=== PATIENT | male | born 1960 | race Caucasian/White ===

== ENCOUNTER 2017-02-28 12:08 | Inpatient (IN) | payer MEDICAID, OTHER ==
[~2017-02-28] VITALS: Ht 162.6 cm; Wt 55.6 kg
[~2017-02-28 12:08] MED LIST: ALBU8HFA IH; AMIO200T44 PO; CARV6 PO; DSS100 PO; FURO20 PO; HYDR-3965 PO; KDUR10 PO; LISI-660 PO; MORP15 PO; PANT40TA25 PO; PRED20 PO; RANI150T7 PO
[2017-02-28] MEDS ORDERED: IPRATROPIUM BROMIDE 0.5 MG/2.5 ML NEB SOLUTION NEB ONE (12:30)
[2017-02-28] MEDS ORDERED: ALBUTEROL SULFATE 2.5 MG/0.5 ML NEB SOLUTION NEB ONE (12:30)
[2017-02-28] MEDS ORDERED: MAGNESIUM SULFATE 2 GM, MVI, ADULT NO.1 WITH VIT K 10 ML, THIAMINE HCL 100 MG, FOLIC AC... IV ONE ×5 (12:30)
[2017-02-28 13:21] LABS: HEMOGLOBIN 11.6 g/dL (13.5-17.5); MEAN CORPUSCULAR HEMOGLOBIN 34.2 pg (26.0-34.0); MEAN CORPUSCULAR HGB CONC 32.3 G/dL (31.0-37.0); MEAN CORPUSCULAR VOLUME 106 fL (80-100); PLATELET COUNT (AUTO) 264 K/uL (150-450); RED BLOOD CELL COUNT(AUTO) 3.39 MIL/uL (4.50-5.90); RED CELL DISTRIBUTION WIDTH 15.8 % (11.5-14.5); WHITE BLOOD COUNT (AUTO) 13.6 K/uL (4.5-11.0)
[2017-02-28 13:35] LABS: ANION GAP 27 mmol/L (8-16); CALCIUM, TOTAL 8.1 mg/dL (8.8-10.5); CARBON DIOXIDE 14 mmol/L (22-29); CHLORIDE 97 mmol/L (98-107); GLOMERULAR FILTR. RATE CALC > 60 mL/min (>60); POTASSIUM 4.6 mmol/L (3.5-5.1); SODIUM SERUM 138 mmol/L (136-145); UREA NITROGEN, BLOOD 12 mg/dL (7-18)
[2017-02-28 13:41] LABS: B-TYPE NATRIURETIC PEPTIDE 42 pg/mL (0-100)
[2017-02-28 13:48] LABS: BAND NEUTROPHILS % (MANUAL) 16 % (1-5); LYMPHOCYTES % (MANUAL) 1 % (22-44); RBC MORPHOLOGY COMMENT ABNORMAL R; TOTAL CELLS COUNTED 100
[2017-02-28 13:55] LABS: INR 0.9 (0.9-1.1)
[2017-02-28 13:59] LABS: ALANINE AMINOTRANSFERASE 66 U/L (12-78); ALBUMIN 3.1 g/dL (3.4-5.0); ASPARTATE AMINOTRANSFERASE 191 U/L (15-37); BILIRUBIN,TOTAL 1.5 mg/dL (0.1-1.0); CREATINE KINASE MB 4.5 ng/mL (0-5); CREATINE KINASE, TOTAL 570 U/L (39-308); TOTAL PROTEIN, SERUM 5.9 g/dL (6.4-8.2)
[2017-02-28 15:04] LABS: APPEARANCE,URINE CLOUDY (CLEAR); GLUCOSE, URINE (UA) NEGATIVE (NEGATIVE); KETONES,URINE 40 mg/dL (NEGATIVE); LEUKOCYTE ESTERASE ,URINE NEGATIVE (NEGATIVE); OCCULT BLOOD,URINE SMALL (NEGATIVE); PH,URINE 5.5 (5.0-8.0); PROTEIN,URINE POS 1+ (NEGATIVE)
[2017-02-28 15:32] LABS: ADD UA MICROSCOPIC YES
[2017-02-28 16:19] LABS: RBC,URINE 0-2 /HPF (0-2)
[2017-02-28 16:20] LABS: COARSE GRANULAR CASTS,URINE 0-2 /LPF (None Seen); FINE GRANULAR CASTS,URINE 0-2 /LPF (None Seen); SQUAMOUS EPITHELIAL CELL,UR Few /LPF (None Seen)
[2017-02-28 18:12] LABS: ANION GAP 27 mmol/L (8-16); CALCIUM, TOTAL 7.9 mg/dL (8.8-10.5); CARBON DIOXIDE 15 mmol/L (22-29); CHLORIDE 95 mmol/L (98-107); CREATININE 0.85 mg/dL (0.60-1.30); GLOMERULAR FILTR. RATE CALC > 60 mL/min (>60); POTASSIUM 4.5 mmol/L (3.5-5.1); SODIUM SERUM 137 mmol/L (136-145); UREA NITROGEN, BLOOD 12 mg/dL (7-18)
[2017-02-28 19:12] LABS: ABG A-A DIFF O2 4.6 mmHg (10-20.0); ABG BASE EXCESS -16.8 mmol/L (-2.0-3.0); ABG HCO3 13.5 mmol/L (22.0-26.0); ABG PH 7.352 (7.35-7.450); TEMPERATURE, FAHRENHEIT, BG 98.6 FAHREN (96.0-98.6)
[2017-02-28 19:13] LABS: ABG PCO2 16 mmHg (35-45); ALLEN TEST, BLOOD GAS POSITIVE
[2017-02-28] MEDS ORDERED: SODIUM BICARBONATE 100 MEQ in DEXTROSE 5%-WATER 1,000 ML IV ONE (19:30)
[2017-02-28] MEDS ORDERED: ChlordiazePOXIDE HCL 25 MG CAPSULE PO ONE (20:00)
[2017-02-28 21:53] LABS: ANION GAP 25 mmol/L (8-16); CALCIUM, TOTAL 7.3 mg/dL (8.8-10.5); CARBON DIOXIDE 15 mmol/L (22-29); CHLORIDE 92 mmol/L (98-107); GLOMERULAR FILTR. RATE CALC > 60 mL/min (>60); POTASSIUM 4.2 mmol/L (3.5-5.1); SODIUM SERUM 132 mmol/L (136-145); UREA NITROGEN, BLOOD 11 mg/dL (7-18)
[2017-02-28] MEDS ORDERED: ACETAMINOPHEN 325 MG TABLET PO PRN (22:45)
[2017-02-28] MEDS ORDERED: ONDANSETRON HCL 4 MG/2 ML VIAL IVP PRN ×2 (22:45→23:30)
[2017-02-28] MEDS ORDERED: 0.9% SODIUM CHLORIDE 10 ML SYRINGE IVP PRN (22:45)
[2017-02-28] MEDS ORDERED: BISACODYL 10 MG RECTAL RECTAL SUPPOSITORY PR PRN (23:30)
[2017-02-28] MEDS ORDERED: ZOLPIDEM TARTRATE 5 MG TABLET PO PRN (23:30)
[2017-02-28] MEDS ORDERED: MAGNESIUM SULFATE 4 GM/WATER 100 ML IV PRN (23:30)
[2017-02-28] MEDS ORDERED: POTASSIUM CHLORIDE 20 MEQ ER TABLET PO PRN (23:30)
[2017-02-28] MEDS: DEXTROSE 5%-0.45% SODIUM CHL 1,000 ML IV SCH (23:48)
[2017-02-28 23:52] VITALS: BP 136/75
[2017-03-01] VITALS (8 sets, daily range): BP systolic 119–146; BP diastolic 72–81
[2017-03-01] MEDS: ChlordiazePOXIDE HCL 25 MG CAPSULE PO PRN ×2 (00:04→03:06)
[2017-03-01] MEDS: OxyCODONE HCL/ACETAMINOPHEN 5-325 MG TABLET PO PRN ×2 (00:44→06:14)
[2017-03-01 05:53] LABS: BASOPHILS # (AUTO) 0.01 K/uL (0.00-0.20); BASOPHILS % (AUTO) 0.1 % (0.0-2.0); EOSINOPHILS # (AUTO) 0.01 K/uL (0.00-0.70); EOSINOPHILS % (AUTO) 0.04 % (1.0-6.0); HEMATOCRIT 32.6 % (41-53); LYMPHOCYTES # (AUTO) 0.4 K/uL (1.0-4.8); LYMPHOCYTES % (AUTO) 3.6 % (22.0-44.0); MEAN CORPUSCULAR HEMOGLOBIN 35.6 pg (26.0-34.0); MEAN CORPUSCULAR HGB CONC 33.7 G/dL (31.0-37.0); MEAN CORPUSCULAR VOLUME 106 fL (80-100); MONOCYTES # (AUTO) 0.7 K/uL (0.1-1.0); MONOCYTES % (AUTO) 5.7 % (2.0-9.0); NEUTROPHILS # (AUTO) 10.7 K/uL (1.8-7.7); PLATELET COUNT (AUTO) 184 K/uL (150-450); RED BLOOD CELL COUNT(AUTO) 3.08 MIL/uL (4.50-5.90); RED CELL DISTRIBUTION WIDTH 15.4 % (11.5-14.5); WHITE BLOOD COUNT (AUTO) 11.8 K/uL (4.5-11.0)
[2017-03-01 06:55] LABS: NEUTROPHILS % (AUTO) 90.5 % (40.0-70.0)
[2017-03-01 06:56] LABS: RBC MORPHOLOGY COMMENT ABNORMAL RBC MORPH
[2017-03-01] MEDS ORDERED: ChlordiazePOXIDE HCL 25 MG CAPSULE PO PRN (07:00)
[2017-03-01 07:02] LABS: ALANINE AMINOTRANSFERASE 57 U/L (12-78); ALBUMIN 2.7 g/dL (3.4-5.0); AMYLASE 58 U/L (25-115); ANION GAP 13 mmol/L (8-16); ASPARTATE AMINOTRANSFERASE 135 U/L (15-37); BILIRUBIN,TOTAL 1.1 mg/dL (0.1-1.0); CALCIUM, TOTAL 7.7 mg/dL (8.8-10.5); CARBON DIOXIDE 25 mmol/L (22-29); CHLORIDE 92 mmol/L (98-107); CHOL/HDL RATIO 2.6 (4.2-7.3); CREATININE 0.97 mg/dL (0.60-1.30); GLOMERULAR FILTR. RATE CALC > 60 mL/min (>60); POTASSIUM 3.4 mmol/L (3.5-5.1); SODIUM SERUM 130 mmol/L (136-145); THYROID STIMULATING HORMONE 2.83 uIU/mL (0.36-3.74); TOTAL PROTEIN, SERUM 5.5 g/dL (6.4-8.2); UREA NITROGEN, BLOOD 11 mg/dL (7-18)
[2017-03-01] MEDS: ChlordiazePOXIDE HCL 25 MG CAPSULE PO SCH ×4 (08:20→20:39)
[2017-03-01] MEDS: AMIODARONE HCL 200 MG TABLET PO SCH ×2 (08:20→20:39)
[2017-03-01] MEDS: RANITIDINE HCL 150 MG TABLET PO SCH ×2 (08:20→23:12)
[2017-03-01] MEDS: HEPARIN SODIUM,PORCINE 5,000 UNITS/ML VIAL SQ SCH ×2 (08:20→20:39)
[2017-03-01] MEDS: THIAMINE HCL 100 MG TABLET PO SCH (08:20)
[2017-03-01] MEDS: FOLIC ACID 1 MG TABLET PO SCH (08:20)
[2017-03-01] MEDS: POTASSIUM CHLORIDE 20 MEQ ER TABLET PO PRN (08:41)
[2017-03-01] MEDS: CARVEDILOL 6.25 MG TABLET PO SCH ×2 (09:32→20:39)
[2017-03-01] MEDS: FUROSEMIDE 20 MG TABLET PO SCH (09:32)
[2017-03-01] MEDS: DEXTROSE 5%-0.45% SODIUM CHL 1,000 ML IV SCH ×2 (11:53→20:39)
[2017-03-01] MEDS ORDERED: LOPERAMIDE HCL 2 MG CAPSULE PO ONE (17:30)
[2017-03-01] MEDS ORDERED: LOPERAMIDE HCL 2 MG CAPSULE PO PRN (17:30)
[2017-03-02 04:57] VITALS: BP 123/84
[2017-03-02] MEDS: DEXTROSE 5%-0.45% SODIUM CHL 1,000 ML IV SCH ×2 (06:04→16:07)
[2017-03-02 07:30] VITALS: BP 128/75
[2017-03-02 07:51] LABS: MAGNESIUM 1.7 mg/dL (1.80-2.40)
[2017-03-02] MEDS: THIAMINE HCL 100 MG TABLET PO SCH (08:15)
[2017-03-02] MEDS: ChlordiazePOXIDE HCL 25 MG CAPSULE PO SCH ×4 (08:15→20:05)
[2017-03-02] MEDS: RANITIDINE HCL 150 MG TABLET PO SCH ×2 (08:15→20:05)
[2017-03-02] MEDS: FOLIC ACID 1 MG TABLET PO SCH (08:15)
[2017-03-02] MEDS: AMIODARONE HCL 200 MG TABLET PO SCH ×2 (08:15→20:05)
[2017-03-02] MEDS: CARVEDILOL 6.25 MG TABLET PO SCH ×2 (08:15→20:05)
[2017-03-02] MEDS: FUROSEMIDE 20 MG TABLET PO SCH (08:15)
[2017-03-02] MEDS: HEPARIN SODIUM,PORCINE 5,000 UNITS/ML VIAL SQ SCH ×2 (08:19→20:10)
[2017-03-02 08:45] LABS: POTASSIUM 3.3 mmol/L (3.5-5.1)
[2017-03-02] MEDS: MAGNESIUM OXIDE 400 MG TABLET PO PRN ×3 (08:59→23:06)
[2017-03-02] MEDS: POTASSIUM CHLORIDE 20 MEQ ER TABLET PO PRN (09:00)
[2017-03-02 11:00] VITALS: BP 115/63
[2017-03-02 15:24] VITALS: BP 142/72
[2017-03-02 15:55] LABS: HEPATITIS Bs ANTIGEN SCREEN P Negative (Negative); HEPATITIS C AB SCREEN <0.1 s/co ratio (0.0-0.9)
[2017-03-02] MEDS ORDERED: MULTIVITAMINS WITH MINERALS, THERAPEUTIC TABLET PO ONE (19:00)
[2017-03-02 19:59] VITALS: BP 113/80
[2017-03-02 23:10] VITALS: BP 129/81
[2017-03-03] VITALS (7 sets, daily range): BP systolic 118–158; BP diastolic 68–91
[2017-03-03] MEDS: DEXTROSE 5%-0.45% SODIUM CHL 1,000 ML IV SCH ×2 (05:54→20:20)
[2017-03-03] MEDS: ACETAMINOPHEN 325 MG TABLET PO PRN (05:54)
[2017-03-03] MEDS ORDERED: ChlordiazePOXIDE HCL 10 MG CAPSULE PO PRN (07:00)
[2017-03-03 07:11] LABS: BASOPHILS % (AUTO) 0.1 % (0.0-2.0); EOSINOPHILS % (AUTO) 1.2 % (1.0-6.0); HEMATOCRIT 29.9 % (41-53); HEMOGLOBIN 9.7 g/dL (13.5-17.5); LYMPHOCYTES % (AUTO) 9.9 % (22.0-44.0); MEAN CORPUSCULAR HEMOGLOBIN 34.6 pg (26.0-34.0); MEAN CORPUSCULAR HGB CONC 32.5 G/dL (31.0-37.0); MEAN CORPUSCULAR VOLUME 106 fL (80-100); MONOCYTES # (AUTO) 0.9 K/uL (0.1-1.0); MONOCYTES % (AUTO) 8.5 % (2.0-9.0); NEUTROPHILS % (AUTO) 80.3 % (40.0-70.0); PLATELET COUNT (AUTO) 128 K/uL (150-450); RBC MORPHOLOGY COMMENT ABNORMAL RBC MORPH; RED BLOOD CELL COUNT(AUTO) 2.81 MIL/uL (4.50-5.90); RED CELL DISTRIBUTION WIDTH 15.4 % (11.5-14.5)
[2017-03-03 07:12] LABS: ALANINE AMINOTRANSFERASE 34 U/L (12-78); ALBUMIN 2.2 g/dL (3.4-5.0); ANION GAP 8 mmol/L (8-16); ASPARTATE AMINOTRANSFERASE 56 U/L (15-37); BILIRUBIN,TOTAL 0.4 mg/dL (0.1-1.0); CALCIUM, TOTAL 8.6 mg/dL (8.8-10.5); CARBON DIOXIDE 26 mmol/L (22-29); CHLORIDE 105 mmol/L (98-107); CREATININE 0.66 mg/dL (0.60-1.30); GLOMERULAR FILTR. RATE CALC > 60 mL/min (>60); POTASSIUM 3.9 mmol/L (3.5-5.1); SODIUM SERUM 139 mmol/L (136-145); TOTAL PROTEIN, SERUM 4.8 g/dL (6.4-8.2); UREA NITROGEN, BLOOD 9 mg/dL (7-18)
[2017-03-03] MEDS: MULTIVITAMINS WITH MINERALS, THERAPEUTIC TABLET PO SCH (08:13)
[2017-03-03] MEDS: THIAMINE HCL 100 MG TABLET PO SCH (08:14)
[2017-03-03] MEDS: RANITIDINE HCL 150 MG TABLET PO SCH ×2 (08:14→20:23)
[2017-03-03] MEDS: ChlordiazePOXIDE HCL 10 MG CAPSULE PO SCH ×4 (08:14→20:15)
[2017-03-03] MEDS: FUROSEMIDE 20 MG TABLET PO SCH (08:14)
[2017-03-03] MEDS: FOLIC ACID 1 MG TABLET PO SCH (08:14)
[2017-03-03] MEDS: CARVEDILOL 6.25 MG TABLET PO SCH ×2 (08:14→20:15)
[2017-03-03] MEDS: AMIODARONE HCL 200 MG TABLET PO SCH ×2 (08:15→20:15)
[2017-03-03] MEDS: HEPARIN SODIUM,PORCINE 5,000 UNITS/ML VIAL SQ SCH ×2 (08:18→20:15)
[2017-03-03] MEDS: MAGNESIUM SULFATE 2 GM in DEXTROSE 5%-WATER 50 ML IV PRN (10:04)
[2017-03-04 00:45] VITALS: BP 141/87
[2017-03-04 05:19] VITALS: BP 144/88
[2017-03-04] MEDS: DEXTROSE 5%-0.45% SODIUM CHL 1,000 ML IV SCH ×2 (06:31→17:07)
[2017-03-04] MEDS ORDERED: ChlordiazePOXIDE HCL 10 MG CAPSULE PO PRN (07:00)
[2017-03-04 07:02] LABS: ALANINE AMINOTRANSFERASE 30 U/L (12-78); ALBUMIN 2.1 g/dL (3.4-5.0); ANION GAP 7 mmol/L (8-16); ASPARTATE AMINOTRANSFERASE 39 U/L (15-37); BILIRUBIN,TOTAL 0.2 mg/dL (0.1-1.0); CALCIUM, TOTAL 8.1 mg/dL (8.8-10.5); CARBON DIOXIDE 26 mmol/L (22-29); CHLORIDE 104 mmol/L (98-107); CREATININE 0.68 mg/dL (0.60-1.30); GLOMERULAR FILTR. RATE CALC > 60 mL/min (>60); POTASSIUM 4.2 mmol/L (3.5-5.1); SODIUM SERUM 137 mmol/L (136-145); TOTAL PROTEIN, SERUM 5.2 g/dL (6.4-8.2); UREA NITROGEN, BLOOD 9 mg/dL (7-18)
[2017-03-04 07:52] VITALS: BP 130/88
[2017-03-04 08:01] LABS: BASOPHILS # (AUTO) 0.06 K/uL (0.00-0.20); BASOPHILS % (AUTO) 0.6 % (0.0-2.0); EOSINOPHILS # (AUTO) 0.16 K/uL (0.00-0.70); EOSINOPHILS % (AUTO) 1.48 % (1.0-6.0); HEMATOCRIT 30.7 % (41-53); LYMPHOCYTES # (AUTO) 1.2 K/uL (1.0-4.8); LYMPHOCYTES % (AUTO) 10.9 % (22.0-44.0); MEAN CORPUSCULAR HEMOGLOBIN 35.1 pg (26.0-34.0); MEAN CORPUSCULAR HGB CONC 32.7 G/dL (31.0-37.0); MEAN CORPUSCULAR VOLUME 107 fL (80-100); MONOCYTES # (AUTO) 1.3 K/uL (0.1-1.0); MONOCYTES % (AUTO) 12.3 % (2.0-9.0); NEUTROPHILS % (AUTO) 74.7 % (40.0-70.0); PLATELET COUNT (AUTO) 151 K/uL (150-450); RED BLOOD CELL COUNT(AUTO) 2.86 MIL/uL (4.50-5.90); RED CELL DISTRIBUTION WIDTH 15.7 % (11.5-14.5); WHITE BLOOD COUNT (AUTO) 10.7 K/uL (4.5-11.0)
[2017-03-04] MEDS: FOLIC ACID 1 MG TABLET PO SCH (09:04)
[2017-03-04] MEDS: RANITIDINE HCL 150 MG TABLET PO SCH ×2 (09:04→20:56)
[2017-03-04] MEDS: THIAMINE HCL 100 MG TABLET PO SCH (09:04)
[2017-03-04] MEDS: MULTIVITAMINS WITH MINERALS, THERAPEUTIC TABLET PO SCH (09:04)
[2017-03-04] MEDS: AMIODARONE HCL 200 MG TABLET PO SCH ×2 (09:04→20:56)
[2017-03-04] MEDS: FUROSEMIDE 20 MG TABLET PO SCH (09:04)
[2017-03-04] MEDS: CARVEDILOL 6.25 MG TABLET PO SCH ×2 (09:04→20:56)
[2017-03-04] MEDS: HEPARIN SODIUM,PORCINE 5,000 UNITS/ML VIAL SQ SCH ×2 (09:05→20:56)
[2017-03-04 11:32] VITALS: BP 125/78
[2017-03-04] MEDS: ChlordiazePOXIDE HCL 25 MG CAPSULE PO SCH ×3 (12:43→23:58)
[2017-03-04] MEDS: MAGNESIUM OXIDE 400 MG TABLET PO PRN ×2 (12:43→18:52)
[2017-03-04 16:28] VITALS: BP 125/83
[2017-03-04] MEDS: IPRATROPIUM BROMIDE 0.5 MG/2.5 ML NEB SOLUTION NEB PRN (19:57)
[2017-03-04] MEDS: ALBUTEROL SULFATE 2.5 MG/0.5 ML NEB SOLUTION NEB PRN (19:57)
[2017-03-04] MEDS ORDERED: FUROSEMIDE 20 MG/2 ML VIAL IVP ONE (21:00)
[2017-03-04 21:02] VITALS: BP 119/82
[2017-03-05] VITALS (11 sets, daily range): BP systolic 97–131; BP diastolic 55–81
[2017-03-05] MEDS: MAGNESIUM OXIDE 400 MG TABLET PO PRN (00:14)
[2017-03-05] MEDS: OxyCODONE HCL/ACETAMINOPHEN 5-325 MG TABLET PO PRN ×3 (00:16→22:47)
[2017-03-05] MEDS: ChlordiazePOXIDE HCL 25 MG CAPSULE PO SCH ×4 (05:51→23:19)
[2017-03-05 06:53] LABS: BASOPHILS % (AUTO) 1.3 % (0.0-2.0); EOSINOPHILS % (AUTO) 0.2 % (1.0-6.0); HEMATOCRIT 30.8 % (41-53); LYMPHOCYTES # (AUTO) 0.6 K/uL (1.0-4.8); LYMPHOCYTES % (AUTO) 5.1 % (22.0-44.0); MEAN CORPUSCULAR HEMOGLOBIN 34.7 pg (26.0-34.0); MEAN CORPUSCULAR HGB CONC 32.5 G/dL (31.0-37.0); MEAN CORPUSCULAR VOLUME 107 fL (80-100); MONOCYTES # (AUTO) 2.4 K/uL (0.1-1.0); MONOCYTES % (AUTO) 19.7 % (2.0-9.0); NEUTROPHILS # (AUTO) 8.8 K/uL (1.8-7.7); NEUTROPHILS % (AUTO) 73.7 % (40.0-70.0); PLATELET COUNT (AUTO) 164 K/uL (150-450); RED BLOOD CELL COUNT(AUTO) 2.88 MIL/uL (4.50-5.90); RED CELL DISTRIBUTION WIDTH 15.7 % (11.5-14.5)
[2017-03-05 07:00] LABS: ALANINE AMINOTRANSFERASE 25 U/L (12-78); ALBUMIN 2.2 g/dL (3.4-5.0); ANION GAP 6 mmol/L (8-16); ASPARTATE AMINOTRANSFERASE 35 U/L (15-37); BILIRUBIN,TOTAL 0.4 mg/dL (0.1-1.0); CALCIUM, TOTAL 8.1 mg/dL (8.8-10.5); CARBON DIOXIDE 29 mmol/L (22-29); CHLORIDE 102 mmol/L (98-107); CREATININE 0.76 mg/dL (0.60-1.30); GLOMERULAR FILTR. RATE CALC > 60 mL/min (>60); POTASSIUM 3.3 mmol/L (3.5-5.1); SODIUM SERUM 137 mmol/L (136-145); TOTAL PROTEIN, SERUM 5.5 g/dL (6.4-8.2); UREA NITROGEN, BLOOD 13 mg/dL (7-18)
[2017-03-05] MEDS: RANITIDINE HCL 150 MG TABLET PO SCH ×2 (08:06→20:57)
[2017-03-05] MEDS: THIAMINE HCL 100 MG TABLET PO SCH (08:06)
[2017-03-05] MEDS: CARVEDILOL 6.25 MG TABLET PO SCH ×2 (08:06→20:57)
[2017-03-05] MEDS: AMIODARONE HCL 200 MG TABLET PO SCH ×2 (08:06→20:58)
[2017-03-05] MEDS: FOLIC ACID 1 MG TABLET PO SCH (08:06)
[2017-03-05] MEDS: FUROSEMIDE 20 MG TABLET PO SCH (08:06)
[2017-03-05] MEDS: HEPARIN SODIUM,PORCINE 5,000 UNITS/ML VIAL SQ SCH ×2 (08:06→20:58)
[2017-03-05] MEDS: MULTIVITAMINS WITH MINERALS, THERAPEUTIC TABLET PO SCH (08:06)
[2017-03-05] MEDS: POTASSIUM CHLORIDE 20 MEQ ER TABLET PO PRN (08:13)
[2017-03-05] MEDS ORDERED: FUROSEMIDE 40 MG/4 ML VIAL IVP ONE (12:15)
[2017-03-05] MEDS: MAGNESIUM SULFATE 2 GM in DEXTROSE 5%-WATER 50 ML IV PRN (12:37)
[2017-03-05] MEDS: ALBUTEROL SULFATE 2.5 MG/0.5 ML NEB SOLUTION NEB PRN (13:33)
[2017-03-05] MEDS: IPRATROPIUM BROMIDE 0.5 MG/2.5 ML NEB SOLUTION NEB PRN (13:34)
[2017-03-06] VITALS (7 sets, daily range): BP systolic 101–117; BP diastolic 59–72
[2017-03-06] MEDS: ChlordiazePOXIDE HCL 25 MG CAPSULE PO SCH ×3 (05:43→17:34)
[2017-03-06 06:42] LABS: BASOPHILS % (AUTO) 0.3 % (0.0-2.0); HEMOGLOBIN 8.9 g/dL (13.5-17.5); LYMPHOCYTES # (AUTO) 1.6 K/uL (1.0-4.8); LYMPHOCYTES % (AUTO) 15.4 % (22.0-44.0); MEAN CORPUSCULAR HGB CONC 31.7 G/dL (31.0-37.0); MEAN CORPUSCULAR VOLUME 107 fL (80-100); MONOCYTES # (AUTO) 1.9 K/uL (0.1-1.0); MONOCYTES % (AUTO) 18.9 % (2.0-9.0); NEUTROPHILS # (AUTO) 6.5 K/uL (1.8-7.7); NEUTROPHILS % (AUTO) 64.4 % (40.0-70.0); PLATELET COUNT (AUTO) 197 K/uL (150-450); RED BLOOD CELL COUNT(AUTO) 2.61 MIL/uL (4.50-5.90); RED CELL DISTRIBUTION WIDTH 15.9 % (11.5-14.5); WHITE BLOOD COUNT (AUTO) 10.1 K/uL (4.5-11.0)
[2017-03-06 06:54] LABS: ALANINE AMINOTRANSFERASE 21 U/L (12-78); ALBUMIN 1.9 g/dL (3.4-5.0); ANION GAP 4 mmol/L (8-16); ASPARTATE AMINOTRANSFERASE 23 U/L (15-37); BILIRUBIN,TOTAL 0.3 mg/dL (0.1-1.0); CALCIUM, TOTAL 8.3 mg/dL (8.8-10.5); CARBON DIOXIDE 30 mmol/L (22-29); CHLORIDE 101 mmol/L (98-107); CREATININE 0.81 mg/dL (0.60-1.30); GLOMERULAR FILTR. RATE CALC > 60 mL/min (>60); POTASSIUM 3.8 mmol/L (3.5-5.1); SODIUM SERUM 135 mmol/L (136-145); TOTAL PROTEIN, SERUM 5.4 g/dL (6.4-8.2); UREA NITROGEN, BLOOD 18 mg/dL (7-18)
[2017-03-06 07:06] LABS: RBC MORPHOLOGY COMMENT ABNORMAL RBC MORPH
[2017-03-06] MEDS: OxyCODONE HCL/ACETAMINOPHEN 5-325 MG TABLET PO PRN ×2 (07:49→17:58)
[2017-03-06] MEDS: FUROSEMIDE 20 MG TABLET PO SCH (07:51)
[2017-03-06] MEDS: AMIODARONE HCL 200 MG TABLET PO SCH ×2 (07:51→20:33)
[2017-03-06] MEDS: CARVEDILOL 6.25 MG TABLET PO SCH ×2 (07:51→20:34)
[2017-03-06] MEDS: FOLIC ACID 1 MG TABLET PO SCH (07:51)
[2017-03-06] MEDS: THIAMINE HCL 100 MG TABLET PO SCH (07:52)
[2017-03-06] MEDS: HEPARIN SODIUM,PORCINE 5,000 UNITS/ML VIAL SQ SCH ×2 (07:52→20:33)
[2017-03-06] MEDS: RANITIDINE HCL 150 MG TABLET PO SCH ×2 (07:52→20:34)
[2017-03-06] MEDS: MULTIVITAMINS WITH MINERALS, THERAPEUTIC TABLET PO SCH (07:52)
[2017-03-06] MEDS: IPRATROPIUM BROMIDE 0.5 MG/2.5 ML NEB SOLUTION NEB PRN (19:24)
[2017-03-06] MEDS: ALBUTEROL SULFATE 2.5 MG/0.5 ML NEB SOLUTION NEB PRN (19:24)
[2017-03-07] MEDS: ChlordiazePOXIDE HCL 25 MG CAPSULE PO SCH ×5 (00:53→23:22)
[2017-03-07] MEDS: IPRATROPIUM BROMIDE 0.5 MG/2.5 ML NEB SOLUTION NEB PRN ×3 (04:08→15:24)
[2017-03-07] MEDS: ALBUTEROL SULFATE 2.5 MG/0.5 ML NEB SOLUTION NEB PRN ×3 (04:08→15:24)
[2017-03-07 04:48] VITALS: BP 130/79
[2017-03-07] MEDS: OxyCODONE HCL/ACETAMINOPHEN 5-325 MG TABLET PO PRN ×3 (04:52→17:37)
[2017-03-07 07:37] LABS: BASOPHILS % (AUTO) 0.7 % (0.0-2.0); EOSINOPHILS % (AUTO) 0.6 % (1.0-6.0); HEMATOCRIT 27.6 % (41-53); HEMOGLOBIN 8.9 g/dL (13.5-17.5); LYMPHOCYTES # (AUTO) 0.8 K/uL (1.0-4.8); LYMPHOCYTES % (AUTO) 7.8 % (22.0-44.0); MEAN CORPUSCULAR HEMOGLOBIN 34.1 pg (26.0-34.0); MEAN CORPUSCULAR HGB CONC 32.1 G/dL (31.0-37.0); MEAN CORPUSCULAR VOLUME 106 fL (80-100); MONOCYTES # (AUTO) 1.5 K/uL (0.1-1.0); NEUTROPHILS # (AUTO) 8.1 K/uL (1.8-7.7); NEUTROPHILS % (AUTO) 76.9 % (40.0-70.0); PLATELET COUNT (AUTO) 254 K/uL (150-450); RED BLOOD CELL COUNT(AUTO) 2.59 MIL/uL (4.50-5.90); RED CELL DISTRIBUTION WIDTH 15.8 % (11.5-14.5); WHITE BLOOD COUNT (AUTO) 10.5 K/uL (4.5-11.0)
[2017-03-07 07:55] VITALS: BP 106/64
[2017-03-07] MEDS: CARVEDILOL 6.25 MG TABLET PO SCH ×2 (08:05→23:22)
[2017-03-07] MEDS: FUROSEMIDE 20 MG TABLET PO SCH (08:07)
[2017-03-07] MEDS: FOLIC ACID 1 MG TABLET PO SCH (08:07)
[2017-03-07] MEDS: RANITIDINE HCL 150 MG TABLET PO SCH ×2 (08:07→20:31)
[2017-03-07] MEDS: MULTIVITAMINS WITH MINERALS, THERAPEUTIC TABLET PO SCH (08:07)
[2017-03-07] MEDS: HEPARIN SODIUM,PORCINE 5,000 UNITS/ML VIAL SQ SCH ×2 (08:07→20:31)
[2017-03-07] MEDS: THIAMINE HCL 100 MG TABLET PO SCH (08:07)
[2017-03-07] MEDS: AMIODARONE HCL 200 MG TABLET PO SCH ×2 (08:07→20:31)
[2017-03-07 08:20] LABS: ALANINE AMINOTRANSFERASE 22 U/L (12-78); ALBUMIN 1.9 g/dL (3.4-5.0); ANION GAP 7 mmol/L (8-16); ASPARTATE AMINOTRANSFERASE 27 U/L (15-37); BILIRUBIN,TOTAL 0.2 mg/dL (0.1-1.0); CALCIUM, TOTAL 8.7 mg/dL (8.8-10.5); CARBON DIOXIDE 27 mmol/L (22-29); CHLORIDE 101 mmol/L (98-107); CREATININE 0.75 mg/dL (0.60-1.30); GLOMERULAR FILTR. RATE CALC > 60 mL/min (>60); POTASSIUM 4.1 mmol/L (3.5-5.1); SODIUM SERUM 135 mmol/L (136-145); TOTAL PROTEIN, SERUM 5.5 g/dL (6.4-8.2); UREA NITROGEN, BLOOD 19 mg/dL (7-18)
[2017-03-07 09:41] LABS: RBC MORPHOLOGY COMMENT ABNORMAL RBC MORPH
[2017-03-07 11:38] VITALS: BP 138/76
[2017-03-07 16:52] VITALS: BP 128/74
[2017-03-07 19:32] VITALS: BP 110/62
[2017-03-07] MEDS: ACETAMINOPHEN 325 MG TABLET PO PRN (20:31)
[2017-03-08] VITALS (9 sets, daily range): BP systolic 103–126; BP diastolic 60–78
[2017-03-08] MEDS: OxyCODONE HCL/ACETAMINOPHEN 5-325 MG TABLET PO PRN ×4 (00:20→23:10)
[2017-03-08] MEDS: ChlordiazePOXIDE HCL 25 MG CAPSULE PO SCH ×4 (05:51→23:07)
[2017-03-08 06:12] LABS: BASOPHILS % (AUTO) 0.5 % (0.0-2.0); EOSINOPHILS % (AUTO) 0.5 % (1.0-6.0); HEMATOCRIT 29.2 % (41-53); HEMOGLOBIN 9.4 g/dL (13.5-17.5); LYMPHOCYTES % (AUTO) 8.8 % (22.0-44.0); MEAN CORPUSCULAR HEMOGLOBIN 34.2 pg (26.0-34.0); MEAN CORPUSCULAR HGB CONC 32.1 G/dL (31.0-37.0); MEAN CORPUSCULAR VOLUME 107 fL (80-100); MONOCYTES # (AUTO) 1.3 K/uL (0.1-1.0); MONOCYTES % (AUTO) 10.9 % (2.0-9.0); NEUTROPHILS # (AUTO) 9.4 K/uL (1.8-7.7); NEUTROPHILS % (AUTO) 79.3 % (40.0-70.0); PLATELET COUNT (AUTO) 291 K/uL (150-450); RED BLOOD CELL COUNT(AUTO) 2.74 MIL/uL (4.50-5.90); RED CELL DISTRIBUTION WIDTH 16.2 % (11.5-14.5); WHITE BLOOD COUNT (AUTO) 11.9 K/uL (4.5-11.0)
[2017-03-08 06:31] LABS: ALANINE AMINOTRANSFERASE 21 U/L (12-78); ANION GAP 6 mmol/L (8-16); ASPARTATE AMINOTRANSFERASE 22 U/L (15-37); BILIRUBIN,TOTAL 0.3 mg/dL (0.1-1.0); CALCIUM, TOTAL 8.7 mg/dL (8.8-10.5); CARBON DIOXIDE 29 mmol/L (22-29); CHLORIDE 102 mmol/L (98-107); CREATININE 0.79 mg/dL (0.60-1.30); GLOMERULAR FILTR. RATE CALC > 60 mL/min (>60); POTASSIUM 4.2 mmol/L (3.5-5.1); SODIUM SERUM 137 mmol/L (136-145); TOTAL PROTEIN, SERUM 5.8 g/dL (6.4-8.2); UREA NITROGEN, BLOOD 18 mg/dL (7-18)
[2017-03-08 06:45] LABS: RBC MORPHOLOGY COMMENT ABNORMAL RBC MORPH
[2017-03-08] MEDS: IPRATROPIUM BROMIDE 0.5 MG/2.5 ML NEB SOLUTION NEB PRN ×2 (07:17→15:10)
[2017-03-08] MEDS: ALBUTEROL SULFATE 2.5 MG/0.5 ML NEB SOLUTION NEB PRN ×2 (07:17→15:10)
[2017-03-08] MEDS: FUROSEMIDE 40 MG TABLET PO SCH (08:53)
[2017-03-08] MEDS: RANITIDINE HCL 150 MG TABLET PO SCH ×2 (08:53→20:18)
[2017-03-08] MEDS: AMIODARONE HCL 200 MG TABLET PO SCH ×2 (08:53→20:18)
[2017-03-08] MEDS: THIAMINE HCL 100 MG TABLET PO SCH (08:53)
[2017-03-08] MEDS: FOLIC ACID 1 MG TABLET PO SCH (08:54)
[2017-03-08] MEDS: HEPARIN SODIUM,PORCINE 5,000 UNITS/ML VIAL SQ SCH ×2 (08:54→20:19)
[2017-03-08] MEDS: CARVEDILOL 6.25 MG TABLET PO SCH ×2 (08:54→20:19)
[2017-03-08] MEDS: MULTIVITAMINS WITH MINERALS, THERAPEUTIC TABLET PO SCH (08:54)
[2017-03-08 15:17] LABS: ABG A-A DIFF O2 56.7 mmHg (10-20.0); ABG BASE EXCESS 3.6 mmol/L (-2.0-3.0); ABG HCO3 27.4 mmol/L (22.0-26.0); ABG OXYHEMOGLOBIN 82.1 % (94.0-100.0); ABG PCO2 37 mmHg (35-45); TEMPERATURE, FAHRENHEIT, BG 98.3 FAHREN (96.0-98.6)
[2017-03-08 15:18] LABS: ALLEN TEST, BLOOD GAS Positive
[2017-03-08] MEDS: MAGNESIUM HYDROXIDE SUSPENSION 30 ML UDCUP PO PRN (21:15)
[2017-03-09] VITALS (7 sets, daily range): BP systolic 96–151; BP diastolic 53–85
[2017-03-09] MEDS: ChlordiazePOXIDE HCL 25 MG CAPSULE PO SCH ×4 (06:05→18:00)
[2017-03-09 06:07] LABS: BASOPHILS % (AUTO) 0.4 % (0.0-2.0); EOSINOPHILS % (AUTO) 0.3 % (1.0-6.0); HEMATOCRIT 28.5 % (41-53); HEMOGLOBIN 9.2 g/dL (13.5-17.5); LYMPHOCYTES # (AUTO) 0.9 K/uL (1.0-4.8); LYMPHOCYTES % (AUTO) 7.6 % (22.0-44.0); MEAN CORPUSCULAR HEMOGLOBIN 34.1 pg (26.0-34.0); MEAN CORPUSCULAR HGB CONC 32.3 G/dL (31.0-37.0); MEAN CORPUSCULAR VOLUME 106 fL (80-100); MONOCYTES # (AUTO) 1.3 K/uL (0.1-1.0); MONOCYTES % (AUTO) 10.3 % (2.0-9.0); NEUTROPHILS # (AUTO) 10.1 K/uL (1.8-7.7); NEUTROPHILS % (AUTO) 81.4 % (40.0-70.0); PLATELET COUNT (AUTO) 362 K/uL (150-450); RED CELL DISTRIBUTION WIDTH 16.3 % (11.5-14.5); WHITE BLOOD COUNT (AUTO) 12.4 K/uL (4.5-11.0)
[2017-03-09 06:22] LABS: ALANINE AMINOTRANSFERASE 19 U/L (12-78); ALBUMIN 1.9 g/dL (3.4-5.0); ANION GAP 6 mmol/L (8-16); ASPARTATE AMINOTRANSFERASE 21 U/L (15-37); BILIRUBIN,TOTAL 0.2 mg/dL (0.1-1.0); CALCIUM, TOTAL 8.7 mg/dL (8.8-10.5); CARBON DIOXIDE 30 mmol/L (22-29); CHLORIDE 101 mmol/L (98-107); GLOMERULAR FILTR. RATE CALC > 60 mL/min (>60); SODIUM SERUM 137 mmol/L (136-145); TOTAL PROTEIN, SERUM 5.8 g/dL (6.4-8.2); UREA NITROGEN, BLOOD 18 mg/dL (7-18)
[2017-03-09 07:52] LABS: RBC MORPHOLOGY COMMENT ABNORMAL RBC MORPH
[2017-03-09] MEDS: OxyCODONE HCL/ACETAMINOPHEN 5-325 MG TABLET PO PRN ×2 (08:17→15:28)
[2017-03-09] MEDS: CARVEDILOL 6.25 MG TABLET PO SCH ×2 (08:21→20:35)
[2017-03-09] MEDS: HEPARIN SODIUM,PORCINE 5,000 UNITS/ML VIAL SQ SCH ×3 (08:21→20:35)
[2017-03-09] MEDS: FUROSEMIDE 40 MG TABLET PO SCH (08:21)
[2017-03-09] MEDS: AMIODARONE HCL 200 MG TABLET PO SCH ×2 (08:21→20:35)
[2017-03-09] MEDS: MULTIVITAMINS WITH MINERALS, THERAPEUTIC TABLET PO SCH (08:21)
[2017-03-09] MEDS: RANITIDINE HCL 150 MG TABLET PO SCH ×2 (08:21→20:35)
[2017-03-09] MEDS: FOLIC ACID 1 MG TABLET PO SCH (08:21)
[2017-03-09] MEDS: THIAMINE HCL 100 MG TABLET PO SCH (08:22)
[2017-03-09] MEDS: IPRATROPIUM BROMIDE 0.5 MG/2.5 ML NEB SOLUTION NEB PRN (08:33)
[2017-03-09] MEDS: ALBUTEROL SULFATE 2.5 MG/0.5 ML NEB SOLUTION NEB PRN (08:33)
[2017-03-09] MEDS: BUDESONIDE 0.5 MG/2 ML NEB SOLUTION NEB SCH (20:00)
[2017-03-10] MEDS: ChlordiazePOXIDE HCL 25 MG CAPSULE PO SCH ×2 (00:24→06:00)
[2017-03-10 01:39] LABS: ABG HCO3 24.8 mmol/L (22.0-26.0); ABG OXYHEMOGLOBIN 99.7 % (94.0-100.0); ABG PCO2 56 mmHg (35-45); ABG PH 7.306 (7.35-7.450); ALLEN TEST, BLOOD GAS POSITIVE; TEMPERATURE, FAHRENHEIT, BG 98.6 FAHREN (96.0-98.6)
[2017-03-10 02:00] VITALS: BP 123/80
[2017-03-10 04:00] VITALS: BP 108/72
[2017-03-10] MEDS ORDERED: FentaNYL CITRATE PF 500 MCG in DEXTROSE 5%-WATER 90 ML IV PRN (06:05)
[2017-03-10] MEDS: PROPOFOL 1000 MG/ISO-OSM 100 ML IV PRN ×2 (06:23→17:05)
[2017-03-10] MEDS: PHENYLEPHRINE 200 MG/D5%-WATER 250 ML IV PRN (06:30)
[2017-03-10] MEDS ORDERED: SODIUM CHLORIDE 0.9% 500 ML IV ONE (06:32)
[2017-03-10] MEDS: BUDESONIDE 0.5 MG/2 ML NEB SOLUTION NEB SCH ×2 (07:57→21:34)
[2017-03-10 08:00] VITALS: BP 92/70
[2017-03-10] MEDS ORDERED: *CLINICAL-RX DOSING [ENTER DRUG IN COMMENTS] CLINICAL ONE (08:30)
[2017-03-10] MEDS: FUROSEMIDE 40 MG TABLET PO SCH (09:00)
[2017-03-10] MEDS: CARVEDILOL 6.25 MG TABLET PO SCH ×2 (09:00→21:00)
[2017-03-10 09:53] LABS: ABG A-A DIFF O2 168.8 mmHg (10-20.0); ABG BASE EXCESS 0.6 mmol/L (-2.0-3.0); ABG HCO3 25.6 mmol/L (22.0-26.0); ABG OXYHEMOGLOBIN 95.6 % (94.0-100.0); ABG PCO2 29 mmHg (35-45); ABG PH 7.524 (7.35-7.450); TEMPERATURE, FAHRENHEIT, BG 98.6 FAHREN (96.0-98.6)
[2017-03-10 09:54] LABS: PROTHROMBIN TIME 10.4 SEC (9.4-11.6)
[2017-03-10 10:04] LABS: ALLEN TEST, BLOOD GAS Positive
[2017-03-10] MEDS: THIAMINE HCL 100 MG TABLET PO SCH (10:17)
[2017-03-10] MEDS: CefTRIAXone 1 GM/DEXTROSE 50 ML IV SCH (10:17)
[2017-03-10] MEDS: FOLIC ACID 1 MG TABLET PO SCH (10:17)
[2017-03-10] MEDS: HEPARIN SODIUM,PORCINE 5,000 UNITS/ML VIAL SQ SCH ×2 (10:17→20:46)
[2017-03-10] MEDS: AMIODARONE HCL 200 MG TABLET PO SCH ×2 (10:17→20:45)
[2017-03-10] MEDS: RANITIDINE HCL 150 MG TABLET PO SCH ×2 (10:20→22:57)
[2017-03-10] MEDS: MULTIVITAMINS WITH MINERALS, THERAPEUTIC TABLET PO SCH (10:20)
[2017-03-10] MEDS: NICOTINE 14 MG/24 HOUR PATCH TD SCH (10:20)
[2017-03-10] MEDS: ALBUMIN HUMAN 25%-12.5GM/50ML 50 ML IV SCH ×3 (10:42→22:57)
[2017-03-10] MEDS: SODIUM CHLORIDE 0.9% 1,000 ML IV SCH ×2 (10:43→22:19)
[2017-03-10 11:54] LABS: BASOPHILS # (AUTO) 0.01 K/uL (0.00-0.20); BASOPHILS % (AUTO) 0.1 % (0.0-2.0); EOSINOPHILS % (AUTO) 0 % (1.0-6.0); HEMATOCRIT 32.1 % (41-53); HEMOGLOBIN 10.7 g/dL (13.5-17.5); LYMPHOCYTES # (AUTO) 0.3 K/uL (1.0-4.8); LYMPHOCYTES % (AUTO) 1.6 % (22.0-44.0); MEAN CORPUSCULAR HEMOGLOBIN 34.3 pg (26.0-34.0); MEAN CORPUSCULAR HGB CONC 33.3 G/dL (31.0-37.0); MEAN CORPUSCULAR VOLUME 103 fL (80-100); MONOCYTES # (AUTO) 0.8 K/uL (0.1-1.0); MONOCYTES % (AUTO) 4.5 % (2.0-9.0); NEUTROPHILS # (AUTO) 17.5 K/uL (1.8-7.7); PLATELET COUNT (AUTO) 362 K/uL (150-450); RED BLOOD CELL COUNT(AUTO) 3.12 MIL/uL (4.50-5.90); RED CELL DISTRIBUTION WIDTH 16.1 % (11.5-14.5); WHITE BLOOD COUNT (AUTO) 18.6 K/uL (4.5-11.0)
[2017-03-10 11:55] LABS: NEUTROPHILS % (AUTO) 93.9 % (40.0-70.0); RBC MORPHOLOGY COMMENT ABNORMAL RBC MORPH
[2017-03-10 12:00] VITALS: BP 108/74
[2017-03-10] MEDS ORDERED: ETOMIDATE 2 MG/ML 10 ML VIAL IVP ONE (12:00)
[2017-03-10] MEDS ORDERED: VECURONIUM BROMIDE 10 MG/VIAL IVP ONE (12:00)
[2017-03-10 12:04] LABS: ANION GAP 11 mmol/L (8-16); CALCIUM, TOTAL 9.1 mg/dL (8.8-10.5); CARBON DIOXIDE 26 mmol/L (22-29); CHLORIDE 103 mmol/L (98-107); CREATINE KINASE, TOTAL 31 U/L (39-308); GLOMERULAR FILTR. RATE CALC > 60 mL/min (>60); POTASSIUM 5.1 mmol/L (3.5-5.1); SODIUM SERUM 140 mmol/L (136-145); UREA NITROGEN, BLOOD 34 mg/dL (7-18)
[2017-03-10] MEDS: ACETAMINOPHEN 325 MG TABLET PO PRN (13:00)
[2017-03-10] MEDS ORDERED: HEPARIN SODIUM 1000 UNITS/NS 500 ML ONE (13:43)
[2017-03-10 16:00] VITALS: BP 99/67
[2017-03-10] MEDS: MAGNESIUM HYDROXIDE SUSPENSION 30 ML UDCUP PO PRN (16:58)
[2017-03-10 20:00] VITALS: BP 106/70
[2017-03-10 20:06] LABS: CREATINE KINASE, TOTAL 43 U/L (39-308)
[2017-03-10] MEDS ORDERED: VANCOMYCIN HCL 1 GM/D5% WATER 200 ML IV ONE (23:30)
[2017-03-11] VITALS (7 sets, daily range): BP systolic 89–126; BP diastolic 58–72
[2017-03-11] MEDS: PROPOFOL 1000 MG/ISO-OSM 100 ML IV PRN ×3 (01:27→21:39)
[2017-03-11] MEDS: ALBUMIN HUMAN 25%-12.5GM/50ML 50 ML IV SCH ×4 (04:51→23:01)
[2017-03-11 05:18] LABS: BASOPHILS % (AUTO) 0.6 % (0.0-2.0); EOSINOPHILS % (AUTO) 0.03 % (1.0-6.0); HEMATOCRIT 28.7 % (41-53); HEMOGLOBIN 9.4 g/dL (13.5-17.5); LYMPHOCYTES # (AUTO) 0.6 K/uL (1.0-4.8); LYMPHOCYTES % (AUTO) 3.8 % (22.0-44.0); MEAN CORPUSCULAR HEMOGLOBIN 34.1 pg (26.0-34.0); MEAN CORPUSCULAR HGB CONC 32.9 G/dL (31.0-37.0); MEAN CORPUSCULAR VOLUME 104 fL (80-100); MONOCYTES # (AUTO) 0.9 K/uL (0.1-1.0); MONOCYTES % (AUTO) 5.7 % (2.0-9.0); NEUTROPHILS # (AUTO) 13.8 K/uL (1.8-7.7); PLATELET COUNT (AUTO) 233 K/uL (150-450); RED BLOOD CELL COUNT(AUTO) 2.77 MIL/uL (4.50-5.90); RED CELL DISTRIBUTION WIDTH 16.1 % (11.5-14.5); WHITE BLOOD COUNT (AUTO) 15.4 K/uL (4.5-11.0)
[2017-03-11 05:20] LABS: NEUTROPHILS % (AUTO) 89.9 % (40.0-70.0)
[2017-03-11 05:31] LABS: B-TYPE NATRIURETIC PEPTIDE 593 pg/mL (0-100)
[2017-03-11 06:07] LABS: ANION GAP 8 mmol/L (8-16); CALCIUM, TOTAL 8.6 mg/dL (8.8-10.5); CARBON DIOXIDE 28 mmol/L (22-29); CHLORIDE 104 mmol/L (98-107); CREATINE KINASE, TOTAL 59 U/L (39-308); GLOMERULAR FILTR. RATE CALC > 60 mL/min (>60); PHOSPHORUS 3.3 mg/dL (2.5-4.9); POTASSIUM 3.8 mmol/L (3.5-5.1); SODIUM SERUM 140 mmol/L (136-145); THYROID STIMULATING HORMONE 0.88 uIU/mL (0.36-3.74); UREA NITROGEN, BLOOD 35 mg/dL (7-18)
[2017-03-11] MEDS: BUDESONIDE 0.5 MG/2 ML NEB SOLUTION NEB SCH ×2 (08:10→20:29)
[2017-03-11] MEDS: VANCOMYCIN HCL 750 MG in DEXTROSE 5%-WATER 150 ML IV SCH ×2 (08:19→20:09)
[2017-03-11] MEDS: NICOTINE 14 MG/24 HOUR PATCH TD SCH (08:53)
[2017-03-11] MEDS: MULTIVITAMINS WITH MINERALS, THERAPEUTIC TABLET PO SCH (08:54)
[2017-03-11] MEDS: HEPARIN SODIUM,PORCINE 5,000 UNITS/ML VIAL SQ SCH (08:55)
[2017-03-11] MEDS: RANITIDINE HCL 150 MG TABLET PO SCH ×2 (08:55→23:01)
[2017-03-11] MEDS: FUROSEMIDE 40 MG TABLET PO SCH (08:56)
[2017-03-11] MEDS: CARVEDILOL 6.25 MG TABLET PO SCH ×2 (08:56→21:00)
[2017-03-11] MEDS: THIAMINE HCL 100 MG TABLET PO SCH (09:07)
[2017-03-11] MEDS: FOLIC ACID 1 MG TABLET PO SCH (09:07)
[2017-03-11] MEDS: CefTRIAXone 1 GM/DEXTROSE 50 ML IV SCH (09:07)
[2017-03-11] MEDS: AMIODARONE HCL 200 MG TABLET PO SCH ×2 (09:07→21:15)
[2017-03-11 10:06] LABS: ABG A-A DIFF O2 127.3 mmHg (10-20.0); ABG HCO3 25.6 mmol/L (22.0-26.0); ABG OXYHEMOGLOBIN 97.3 % (94.0-100.0); ABG PCO2 35 mmHg (35-45); ABG PH 7.467 (7.35-7.450); ALLEN TEST, BLOOD GAS Positive; TEMPERATURE, FAHRENHEIT, BG 99.2 FAHREN (96.0-98.6)
[2017-03-11] MEDS: SODIUM CHLORIDE 0.9% 1,000 ML IV SCH (15:35)
[2017-03-11] MEDS: PHENYLEPHRINE 200 MG/D5%-WATER 250 ML IV PRN (20:09)
[2017-03-11] MEDS: IPRATROPIUM BROMIDE 0.5 MG/2.5 ML NEB SOLUTION NEB PRN (20:29)
[2017-03-11] MEDS: ALBUTEROL SULFATE 2.5 MG/0.5 ML NEB SOLUTION NEB PRN (20:30)
[2017-03-12] VITALS (8 sets, daily range): BP systolic 104–147; BP diastolic 64–87
[2017-03-12] MEDS: AMPICILLIN SODIUM/SULBACTAM NA 3 GM in SODIUM CHLORIDE 0.9% 100 ML IV SCH ×4 (00:05→17:23)
[2017-03-12 05:17] LABS: ALANINE AMINOTRANSFERASE 27 U/L (12-78); ALBUMIN 2.6 g/dL (3.4-5.0); ANION GAP 9 mmol/L (8-16); ASPARTATE AMINOTRANSFERASE 31 U/L (15-37); BILIRUBIN,TOTAL 0.3 mg/dL (0.1-1.0); CALCIUM, TOTAL 8.1 mg/dL (8.8-10.5); CARBON DIOXIDE 27 mmol/L (22-29); CHLORIDE 104 mmol/L (98-107); GLOMERULAR FILTR. RATE CALC > 60 mL/min (>60); POTASSIUM 3.7 mmol/L (3.5-5.1); SODIUM SERUM 140 mmol/L (136-145); TOTAL PROTEIN, SERUM 5.9 g/dL (6.4-8.2); UREA NITROGEN, BLOOD 26 mg/dL (7-18)
[2017-03-12 05:29] LABS: BASOPHILS % (AUTO) 0.1 % (0.0-2.0); EOSINOPHILS % (AUTO) 0.2 % (1.0-6.0); HEMOGLOBIN 8.9 g/dL (13.5-17.5); LYMPHOCYTES # (AUTO) 0.5 K/uL (1.0-4.8); LYMPHOCYTES % (AUTO) 4.5 % (22.0-44.0); MEAN CORPUSCULAR HEMOGLOBIN 33.2 pg (26.0-34.0); MEAN CORPUSCULAR HGB CONC 31.8 G/dL (31.0-37.0); MEAN CORPUSCULAR VOLUME 104 fL (80-100); MONOCYTES # (AUTO) 0.8 K/uL (0.1-1.0); MONOCYTES % (AUTO) 6.7 % (2.0-9.0); NEUTROPHILS # (AUTO) 10.6 K/uL (1.8-7.7); RED BLOOD CELL COUNT(AUTO) 2.69 MIL/uL (4.50-5.90); RED CELL DISTRIBUTION WIDTH 16.9 % (11.5-14.5)
[2017-03-12] MEDS: ALBUMIN HUMAN 25%-12.5GM/50ML 50 ML IV SCH ×4 (05:33→23:23)
[2017-03-12] MEDS: SODIUM CHLORIDE 0.9% 1,000 ML IV SCH (05:33)
[2017-03-12 06:31] LABS: NEUTROPHILS % (AUTO) 88.5 % (40.0-70.0)
[2017-03-12] MEDS ORDERED: DIGOXIN 250 MCG/ML 2 ML AMP IVP ONE (07:30)
[2017-03-12] MEDS: VANCOMYCIN HCL 750 MG in DEXTROSE 5%-WATER 150 ML IV SCH (07:37)
[2017-03-12] MEDS: PROPOFOL 1000 MG/ISO-OSM 100 ML IV PRN ×2 (07:40→20:11)
[2017-03-12 07:49] LABS: PLATELET COUNT (AUTO) 155 K/uL (150-450)
[2017-03-12] MEDS: BUDESONIDE 0.5 MG/2 ML NEB SOLUTION NEB SCH ×2 (08:48→20:06)
[2017-03-12] MEDS: THIAMINE HCL 100 MG TABLET PO SCH (08:58)
[2017-03-12] MEDS: RANITIDINE HCL 150 MG TABLET PO SCH ×2 (08:58→20:09)
[2017-03-12] MEDS: MULTIVITAMINS WITH MINERALS, THERAPEUTIC TABLET PO SCH (08:58)
[2017-03-12] MEDS: AMIODARONE HCL 200 MG TABLET PO SCH ×2 (08:58→20:09)
[2017-03-12] MEDS: FOLIC ACID 1 MG TABLET PO SCH (08:58)
[2017-03-12] MEDS: FUROSEMIDE 40 MG TABLET PO SCH (08:58)
[2017-03-12] MEDS: NICOTINE 7 MG/24 HOUR PATCH TD SCH (08:59)
[2017-03-12] MEDS: CARVEDILOL 6.25 MG TABLET PO SCH ×2 (08:59→20:47)
[2017-03-12] MEDS: LORazepam 2 MG/ML VIAL IM PRN (09:00)
[2017-03-12 10:30] LABS: ABG A-A DIFF O2 97.7 mmHg (10-20.0); ABG BASE EXCESS 0.6 mmol/L (-2.0-3.0); ABG HCO3 25.4 mmol/L (22.0-26.0); ABG OXYHEMOGLOBIN 97.5 % (94.0-100.0); ABG PCO2 31 mmHg (35-45); ALLEN TEST, BLOOD GAS Positive; TEMPERATURE, FAHRENHEIT, BG 99.4 FAHREN (96.0-98.6)
[2017-03-12] MEDS ORDERED: VANCOMYCIN HCL 500 MG in DEXTROSE 5%-WATER 100 ML IV SCH ×2 (14:00→16:00)
[2017-03-12] MEDS: ACETAMINOPHEN 325 MG TABLET PO PRN (14:08)
[2017-03-12] MEDS: ALBUTEROL SULFATE 2.5 MG/0.5 ML NEB SOLUTION NEB PRN (20:06)
[2017-03-12] MEDS: IPRATROPIUM BROMIDE 0.5 MG/2.5 ML NEB SOLUTION NEB PRN (20:06)
[2017-03-13] VITALS: BP 124/71
[2017-03-13] MEDS: SODIUM CHLORIDE 0.9% 1,000 ML IV SCH ×2 (01:45→17:06)
[2017-03-13] MEDS: AMPICILLIN SODIUM/SULBACTAM NA 3 GM in SODIUM CHLORIDE 0.9% 100 ML IV SCH ×4 (01:45→17:07)
[2017-03-13] MEDS: ALBUMIN HUMAN 25%-12.5GM/50ML 50 ML IV SCH ×4 (03:52→22:06)
[2017-03-13 04:00] VITALS: BP 139/83
[2017-03-13] MEDS: PROPOFOL 1000 MG/ISO-OSM 100 ML IV PRN ×3 (04:20→22:07)
[2017-03-13 06:34] LABS: HEMATOCRIT 24.6 % (41-53); HEMOGLOBIN 8.1 g/dL (13.5-17.5); MEAN CORPUSCULAR HEMOGLOBIN 34.1 pg (26.0-34.0); MEAN CORPUSCULAR VOLUME 103 fL (80-100); PLATELET COUNT (AUTO) 109 K/uL (150-450); RED BLOOD CELL COUNT(AUTO) 2.38 MIL/uL (4.50-5.90); RED CELL DISTRIBUTION WIDTH 16.4 % (11.5-14.5); WHITE BLOOD COUNT (AUTO) 9.6 K/uL (4.5-11.0)
[2017-03-13 07:02] LABS: ALANINE AMINOTRANSFERASE 26 U/L (12-78); ALBUMIN 3.1 g/dL (3.4-5.0); ANION GAP 10 mmol/L (8-16); ASPARTATE AMINOTRANSFERASE 30 U/L (15-37); BILIRUBIN,TOTAL 0.6 mg/dL (0.1-1.0); CALCIUM, TOTAL 8.3 mg/dL (8.8-10.5); CARBON DIOXIDE 26 mmol/L (22-29); CHLORIDE 107 mmol/L (98-107); CREATININE 0.57 mg/dL (0.60-1.30); GLOMERULAR FILTR. RATE CALC > 60 mL/min (>60); POTASSIUM 3.1 mmol/L (3.5-5.1); SODIUM SERUM 143 mmol/L (136-145); TOTAL PROTEIN, SERUM 5.9 g/dL (6.4-8.2); UREA NITROGEN, BLOOD 17 mg/dL (7-18)
[2017-03-13] MEDS: BUDESONIDE 0.5 MG/2 ML NEB SOLUTION NEB SCH ×2 (07:43→20:34)
[2017-03-13 08:00] VITALS: BP 108/72
[2017-03-13 08:33] LABS: TEMPERATURE, FAHRENHEIT, BG 98.6 FAHREN (96.0-98.6)
[2017-03-13 08:35] LABS: ABG BASE EXCESS 2.2 mmol/L (-2.0-3.0); ABG HCO3 26.4 mmol/L (22.0-26.0); ABG OXYHEMOGLOBIN 88.2 % (94.0-100.0); ABG PCO2 34 mmHg (35-45); ABG PH 7.498 (7.35-7.450)
[2017-03-13 08:37] LABS: BAND NEUTROPHILS % (MANUAL) 16 % (1-5); LYMPHOCYTES % (MANUAL) 10 % (22-44); RBC MORPHOLOGY COMMENT ABNORMAL RBC MORPH; TOTAL CELLS COUNTED 100
[2017-03-13] MEDS: NICOTINE 7 MG/24 HOUR PATCH TD SCH (08:49)
[2017-03-13] MEDS: POTASSIUM CHLORIDE 20 MEQ ER TABLET PO PRN ×2 (08:50→21:06)
[2017-03-13] MEDS: MULTIVITAMINS WITH MINERALS, THERAPEUTIC TABLET PO SCH (08:50)
[2017-03-13] MEDS: AMIODARONE HCL 200 MG TABLET PO SCH ×2 (08:50→21:07)
[2017-03-13] MEDS: FOLIC ACID 1 MG TABLET PO SCH (08:51)
[2017-03-13] MEDS: FUROSEMIDE 40 MG TABLET PO SCH (08:51)
[2017-03-13] MEDS: THIAMINE HCL 100 MG TABLET PO SCH (08:51)
[2017-03-13] MEDS: CARVEDILOL 6.25 MG TABLET PO SCH ×2 (08:51→21:07)
[2017-03-13] MEDS: RANITIDINE HCL 150 MG TABLET PO SCH ×2 (08:51→21:07)
[2017-03-13 12:00] VITALS: BP 112/65
[2017-03-13 16:00] VITALS: BP 135/73
[2017-03-13 20:00] VITALS: BP 125/73
[2017-03-13] MEDS ORDERED: 0.9% SODIUM CHLORIDE 5 ML NEB SOLUTION NEB ONE (20:03)
[2017-03-14 00:09] VITALS: BP 121/73
[2017-03-14] MEDS: NAFCILLIN SODIUM 2 GM in DEXTROSE 5%-WATER 100 ML IV SCH ×7 (00:57→23:40)
[2017-03-14 04:00] VITALS: BP 124/75
[2017-03-14] MEDS: ALBUMIN HUMAN 25%-12.5GM/50ML 50 ML IV SCH ×4 (04:37→22:41)
[2017-03-14] MEDS: PROPOFOL 1000 MG/ISO-OSM 100 ML IV PRN ×2 (07:00→17:24)
[2017-03-14 08:00] VITALS: BP 115/66
[2017-03-14] MEDS: BUDESONIDE 0.5 MG/2 ML NEB SOLUTION NEB SCH ×2 (08:37→19:56)
[2017-03-14] MEDS: IPRATROPIUM BROMIDE 0.5 MG/2.5 ML NEB SOLUTION NEB PRN (08:37)
[2017-03-14] MEDS: ALBUTEROL SULFATE 2.5 MG/0.5 ML NEB SOLUTION NEB PRN (08:37)
[2017-03-14] MEDS: MULTIVITAMINS WITH MINERALS, THERAPEUTIC TABLET PO SCH (09:05)
[2017-03-14] MEDS: NICOTINE 7 MG/24 HOUR PATCH TD SCH (09:05)
[2017-03-14] MEDS: FOLIC ACID 1 MG TABLET PO SCH (09:06)
[2017-03-14] MEDS: AMIODARONE HCL 200 MG TABLET PO SCH ×2 (09:06→21:16)
[2017-03-14] MEDS: FUROSEMIDE 40 MG TABLET PO SCH (09:06)
[2017-03-14] MEDS: CARVEDILOL 6.25 MG TABLET PO SCH ×2 (09:06→20:05)
[2017-03-14] MEDS: THIAMINE HCL 100 MG TABLET PO SCH (09:06)
[2017-03-14] MEDS: RANITIDINE HCL 150 MG TABLET PO SCH ×2 (09:06→20:12)
[2017-03-14 10:08] LABS: BASOPHILS # (AUTO) 0.01 K/uL (0.00-0.20); BASOPHILS % (AUTO) 0.1 % (0.0-2.0); EOSINOPHILS # (AUTO) 0.03 K/uL (0.00-0.70); EOSINOPHILS % (AUTO) 0.31 % (1.0-6.0); HEMATOCRIT 21.3 % (41-53); HEMOGLOBIN 7.3 g/dL (13.5-17.5); LYMPHOCYTES # (AUTO) 0.6 K/uL (1.0-4.8); LYMPHOCYTES % (AUTO) 6.3 % (22.0-44.0); MEAN CORPUSCULAR HEMOGLOBIN 34.5 pg (26.0-34.0); MEAN CORPUSCULAR HGB CONC 34.1 G/dL (31.0-37.0); MEAN CORPUSCULAR VOLUME 101 fL (80-100); MONOCYTES # (AUTO) 0.7 K/uL (0.1-1.0); MONOCYTES % (AUTO) 6.7 % (2.0-9.0); NEUTROPHILS # (AUTO) 8.6 K/uL (1.8-7.7); NEUTROPHILS % (AUTO) 86.6 % (40.0-70.0); PLATELET COUNT (AUTO) 138 K/uL (150-450); RED BLOOD CELL COUNT(AUTO) 2.11 MIL/uL (4.50-5.90); RED CELL DISTRIBUTION WIDTH 16.8 % (11.5-14.5); WHITE BLOOD COUNT (AUTO) 9.9 K/uL (4.5-11.0)
[2017-03-14 10:11] LABS: ALANINE AMINOTRANSFERASE 30 U/L (12-78); ALBUMIN 2.8 g/dL (3.4-5.0); ANION GAP 7 mmol/L (8-16); ASPARTATE AMINOTRANSFERASE 30 U/L (15-37); CALCIUM, TOTAL 8.2 mg/dL (8.8-10.5); CARBON DIOXIDE 29 mmol/L (22-29); CHLORIDE 109 mmol/L (98-107); CREATININE 0.64 mg/dL (0.60-1.30); GLOMERULAR FILTR. RATE CALC > 60 mL/min (>60); POTASSIUM 3.6 mmol/L (3.5-5.1); SODIUM SERUM 145 mmol/L (136-145); TOTAL PROTEIN, SERUM 5.6 g/dL (6.4-8.2); UREA NITROGEN, BLOOD 21 mg/dL (7-18)
[2017-03-14 10:20] LABS: RBC MORPHOLOGY COMMENT ABNORMAL RBC MORPH
[2017-03-14 12:00] VITALS: BP 124/75
[2017-03-14 12:28] LABS: ABG A-A DIFF O2 84.5 mmHg (10-20.0); ABG BASE EXCESS 0.4 mmol/L (-2.0-3.0); ABG OXYHEMOGLOBIN 96.3 % (94.0-100.0); ABG PCO2 31 mmHg (35-45); TEMPERATURE, FAHRENHEIT, BG 98.9 FAHREN (96.0-98.6)
[2017-03-14 12:29] LABS: ALLEN TEST, BLOOD GAS POSITIVE
[2017-03-14] MEDS: LORazepam 2 MG/ML VIAL IM PRN (13:13)
[2017-03-14] MEDS ORDERED: INDIUM IN-111 OXYQUINOLINE/.5MCL ISOTOPE 1 EA INJ INJ ONE (13:20)
[2017-03-14 16:00] VITALS: BP 103/63
[2017-03-14 20:00] VITALS: BP 94/59
[2017-03-15] VITALS: BP 112/65
[2017-03-15] MEDS ORDERED: SODIUM CHLORIDE 0.9% 250 ML IV ONE ×2 (00:32→20:14)
[2017-03-15] MEDS: PROPOFOL 1000 MG/ISO-OSM 100 ML IV PRN ×3 (01:01→20:47)
[2017-03-15 04:00] VITALS: BP 128/75
[2017-03-15] MEDS: NAFCILLIN SODIUM 2 GM in DEXTROSE 5%-WATER 100 ML IV SCH ×5 (04:36→20:45)
[2017-03-15] MEDS: ALBUMIN HUMAN 25%-12.5GM/50ML 50 ML IV SCH ×4 (04:37→22:58)
[2017-03-15 05:22] LABS: BASOPHILS % (AUTO) 0.1 % (0.0-2.0); EOSINOPHILS % (AUTO) 0.7 % (1.0-6.0); HEMATOCRIT 24.6 % (41-53); HEMOGLOBIN 7.7 g/dL (13.5-17.5); LYMPHOCYTES # (AUTO) 0.8 K/uL (1.0-4.8); LYMPHOCYTES % (AUTO) 7.1 % (22.0-44.0); MEAN CORPUSCULAR HEMOGLOBIN 32.6 pg (26.0-34.0); MEAN CORPUSCULAR HGB CONC 31.3 G/dL (31.0-37.0); MEAN CORPUSCULAR VOLUME 104 fL (80-100); MONOCYTES # (AUTO) 0.8 K/uL (0.1-1.0); MONOCYTES % (AUTO) 7.2 % (2.0-9.0); NEUTROPHILS # (AUTO) 9.6 K/uL (1.8-7.7); NEUTROPHILS % (AUTO) 84.9 % (40.0-70.0); PLATELET COUNT (AUTO) 159 K/uL (150-450); RED BLOOD CELL COUNT(AUTO) 2.37 MIL/uL (4.50-5.90); RED CELL DISTRIBUTION WIDTH 17.3 % (11.5-14.5); WHITE BLOOD COUNT (AUTO) 11.3 K/uL (4.5-11.0)
[2017-03-15 05:43] LABS: ANION GAP 6 mmol/L (8-16); CALCIUM, TOTAL 8.4 mg/dL (8.8-10.5); CARBON DIOXIDE 29 mmol/L (22-29); CHLORIDE 108 mmol/L (98-107); CREATININE 0.64 mg/dL (0.60-1.30); GLOMERULAR FILTR. RATE CALC > 60 mL/min (>60); POTASSIUM 3.4 mmol/L (3.5-5.1); SODIUM SERUM 143 mmol/L (136-145); UREA NITROGEN, BLOOD 21 mg/dL (7-18)
[2017-03-15 06:52] LABS: RBC MORPHOLOGY COMMENT ABNORMAL RBC MORPH
[2017-03-15] MEDS: BUDESONIDE 0.5 MG/2 ML NEB SOLUTION NEB SCH ×2 (07:43→22:02)
[2017-03-15 08:00] VITALS: BP 133/76
[2017-03-15 08:27] LABS: TEMPERATURE, FAHRENHEIT, BG 98.6 FAHREN (96.0-98.6)
[2017-03-15 08:42] LABS: ABG A-A DIFF O2 90.5 mmHg (10-20.0); ABG BASE EXCESS 5.6 mmol/L (-2.0-3.0); ABG HCO3 29.2 mmol/L (22.0-26.0); ABG OXYHEMOGLOBIN 95.2 % (94.0-100.0); ABG PCO2 39 mmHg (35-45); ABG PH 7.493 (7.35-7.450)
[2017-03-15] MEDS: NICOTINE 7 MG/24 HOUR PATCH TD SCH (08:42)
[2017-03-15] MEDS: FUROSEMIDE 40 MG TABLET PO SCH (08:42)
[2017-03-15 08:43] LABS: ALLEN TEST, BLOOD GAS Positive
[2017-03-15] MEDS: FOLIC ACID 1 MG TABLET PO SCH (08:43)
[2017-03-15] MEDS: THIAMINE HCL 100 MG TABLET PO SCH (08:43)
[2017-03-15] MEDS: RANITIDINE HCL 150 MG TABLET PO SCH ×2 (08:43→20:45)
[2017-03-15] MEDS: POTASSIUM CHLORIDE 20 MEQ ER TABLET PO PRN (08:43)
[2017-03-15] MEDS: MULTIVITAMINS WITH MINERALS, THERAPEUTIC TABLET PO SCH (08:43)
[2017-03-15] MEDS: CARVEDILOL 6.25 MG TABLET PO SCH ×2 (08:43→20:45)
[2017-03-15] MEDS: AMIODARONE HCL 200 MG TABLET PO SCH ×2 (08:43→20:45)
[2017-03-15 12:00] VITALS: BP 147/87
[2017-03-15 16:00] VITALS: BP 114/67
[2017-03-15 17:17] LABS: GLUCOSE,POINT OF CARE 167 MG/DL (70-110)
[2017-03-15] MEDS: ALBUTEROL SULFATE 2.5 MG/0.5 ML NEB SOLUTION NEB PRN (19:53)
[2017-03-15] MEDS: IPRATROPIUM BROMIDE 0.5 MG/2.5 ML NEB SOLUTION NEB PRN (19:53)
[2017-03-16] VITALS (7 sets, daily range): BP systolic 128–160; BP diastolic 71–98
[2017-03-16] MEDS: MetroNIDAZOLE 250 MG TABLET PO SCH ×3 (00:27→16:03)
[2017-03-16] MEDS: NAFCILLIN SODIUM 2 GM in DEXTROSE 5%-WATER 100 ML IV SCH ×7 (00:27→23:38)
[2017-03-16] MEDS: ALBUMIN HUMAN 25%-12.5GM/50ML 50 ML IV SCH ×4 (04:07→22:28)
[2017-03-16] MEDS: PROPOFOL 1000 MG/ISO-OSM 100 ML IV PRN ×3 (04:09→23:39)
[2017-03-16 05:22] LABS: EOSINOPHILS # (AUTO) 0.05 K/uL (0.00-0.70); HEMATOCRIT 22.2 % (41-53); HEMOGLOBIN 7.1 g/dL (13.5-17.5); LYMPHOCYTES # (AUTO) 0.9 K/uL (1.0-4.8); LYMPHOCYTES % (AUTO) 9.8 % (22.0-44.0); MEAN CORPUSCULAR HEMOGLOBIN 33.4 pg (26.0-34.0); MEAN CORPUSCULAR VOLUME 104 fL (80-100); MONOCYTES # (AUTO) 0.7 K/uL (0.1-1.0); MONOCYTES % (AUTO) 7.5 % (2.0-9.0); NEUTROPHILS # (AUTO) 7.7 K/uL (1.8-7.7); NEUTROPHILS % (AUTO) 82.1 % (40.0-70.0); PLATELET COUNT (AUTO) 233 K/uL (150-450); RED BLOOD CELL COUNT(AUTO) 2.13 MIL/uL (4.50-5.90); RED CELL DISTRIBUTION WIDTH 17.2 % (11.5-14.5); WHITE BLOOD COUNT (AUTO) 9.4 K/uL (4.5-11.0)
[2017-03-16 05:28] LABS: ANION GAP 5 mmol/L (8-16); CALCIUM, TOTAL 8.5 mg/dL (8.8-10.5); CARBON DIOXIDE 30 mmol/L (22-29); CHLORIDE 108 mmol/L (98-107); CREATININE 0.68 mg/dL (0.60-1.30); GLOMERULAR FILTR. RATE CALC > 60 mL/min (>60); POTASSIUM 3.6 mmol/L (3.5-5.1); SODIUM SERUM 143 mmol/L (136-145); UREA NITROGEN, BLOOD 19 mg/dL (7-18)
[2017-03-16] MEDS ORDERED: SODIUM CHLORIDE 0.9% 1,000 ML IV SCH (07:00)
[2017-03-16 07:14] LABS: RBC MORPHOLOGY COMMENT ABNORMAL RBC MORPH
[2017-03-16] MEDS: BUDESONIDE 0.5 MG/2 ML NEB SOLUTION NEB SCH ×2 (08:02→19:44)
[2017-03-16] MEDS: NICOTINE 7 MG/24 HOUR PATCH TD SCH (09:22)
[2017-03-16] MEDS: THIAMINE HCL 100 MG TABLET PO SCH (09:22)
[2017-03-16] MEDS: RANITIDINE HCL 150 MG TABLET PO SCH ×2 (09:22→20:55)
[2017-03-16] MEDS: LORazepam 2 MG/ML VIAL IM PRN (09:22)
[2017-03-16] MEDS: MULTIVITAMINS WITH MINERALS, THERAPEUTIC TABLET PO SCH (09:22)
[2017-03-16] MEDS: CARVEDILOL 6.25 MG TABLET PO SCH ×2 (09:23→20:55)
[2017-03-16] MEDS: FOLIC ACID 1 MG TABLET PO SCH (09:23)
[2017-03-16] MEDS: AMIODARONE HCL 200 MG TABLET PO SCH ×2 (09:23→20:55)
[2017-03-16] MEDS: FUROSEMIDE 40 MG TABLET PO SCH (09:23)
[2017-03-16 15:16] LABS: ABG A-A DIFF O2 89.4 mmHg (10-20.0); ABG BASE EXCESS 4.3 mmol/L (-2.0-3.0); ABG HCO3 28.2 mmol/L (22.0-26.0); ABG OXYHEMOGLOBIN 95.6 % (94.0-100.0); ABG PCO2 34 mmHg (35-45); ABG PH 7.516 (7.35-7.450); ALLEN TEST, BLOOD GAS Positive; TEMPERATURE, FAHRENHEIT, BG 99.6 FAHREN (96.0-98.6)
[2017-03-16] MEDS ORDERED: SODIUM CHLORIDE 0.9% 250 ML IV ONE (16:07)
[2017-03-16] MEDS: IPRATROPIUM BROMIDE 0.5 MG/2.5 ML NEB SOLUTION NEB PRN (19:44)
[2017-03-16] MEDS: ALBUTEROL SULFATE 2.5 MG/0.5 ML NEB SOLUTION NEB PRN (19:44)
[2017-03-17] VITALS: BP 122/75
[2017-03-17] MEDS: MetroNIDAZOLE 250 MG TABLET PO SCH ×3 (00:39→16:30)
[2017-03-17 04:00] VITALS: BP 114/67
[2017-03-17] MEDS: NAFCILLIN SODIUM 2 GM in DEXTROSE 5%-WATER 100 ML IV SCH ×5 (04:28→19:54)
[2017-03-17] MEDS: ALBUMIN HUMAN 25%-12.5GM/50ML 50 ML IV SCH ×4 (04:28→23:08)
[2017-03-17 06:16] LABS: ORIG DRAW (USER) MSIMS
[2017-03-17 07:31] LABS: BASOPHILS % (AUTO) 0.4 % (0.0-2.0); EOSINOPHILS % (AUTO) 0.9 % (1.0-6.0); HEMOGLOBIN 7.8 g/dL (13.5-17.5); LYMPHOCYTES # (AUTO) 1.4 K/uL (1.0-4.8); LYMPHOCYTES % (AUTO) 12.9 % (22.0-44.0); MEAN CORPUSCULAR HEMOGLOBIN 32.2 pg (26.0-34.0); MEAN CORPUSCULAR HGB CONC 31.2 G/dL (31.0-37.0); MEAN CORPUSCULAR VOLUME 103 fL (80-100); MONOCYTES % (AUTO) 9.2 % (2.0-9.0); NEUTROPHILS # (AUTO) 8.1 K/uL (1.8-7.7); NEUTROPHILS % (AUTO) 76.6 % (40.0-70.0); PLATELET COUNT (AUTO) 273 K/uL (150-450); RED BLOOD CELL COUNT(AUTO) 2.43 MIL/uL (4.50-5.90); RED CELL DISTRIBUTION WIDTH 17.7 % (11.5-14.5); WHITE BLOOD COUNT (AUTO) 10.6 K/uL (4.5-11.0)
[2017-03-17 08:00] VITALS: BP 140/82
[2017-03-17 08:46] LABS: RBC MORPHOLOGY COMMENT ABNORMAL RBC MORPH
[2017-03-17] MEDS: ALBUTEROL SULFATE 2.5 MG/0.5 ML NEB SOLUTION NEB PRN (08:51)
[2017-03-17] MEDS: BUDESONIDE 0.5 MG/2 ML NEB SOLUTION NEB SCH ×2 (08:52→20:56)
[2017-03-17] MEDS: FOLIC ACID 1 MG TABLET PO SCH (09:35)
[2017-03-17] MEDS: AMIODARONE HCL 200 MG TABLET PO SCH ×2 (09:35→21:13)
[2017-03-17] MEDS: FUROSEMIDE 40 MG TABLET PO SCH (09:35)
[2017-03-17] MEDS: CARVEDILOL 6.25 MG TABLET PO SCH ×2 (09:35→21:13)
[2017-03-17] MEDS: THIAMINE HCL 100 MG TABLET PO SCH (09:36)
[2017-03-17] MEDS: RANITIDINE HCL 150 MG TABLET PO SCH ×2 (09:36→21:13)
[2017-03-17] MEDS: MULTIVITAMINS WITH MINERALS, THERAPEUTIC TABLET PO SCH (09:36)
[2017-03-17] MEDS: NICOTINE 7 MG/24 HOUR PATCH TD SCH (09:37)
[2017-03-17 12:00] VITALS: BP 140/81
[2017-03-17] MEDS: PROPOFOL 1000 MG/ISO-OSM 100 ML IV PRN (14:38)
[2017-03-17 16:00] VITALS: BP 129/72
[2017-03-17] MEDS ORDERED: SODIUM CHLORIDE 0.9% 250 ML IV ONE (17:39)
[2017-03-17 20:00] VITALS: BP 132/74
[2017-03-18] VITALS: BP 119/71
[2017-03-18] MEDS: NAFCILLIN SODIUM 2 GM in DEXTROSE 5%-WATER 100 ML IV SCH ×6 (00:12→19:29)
[2017-03-18] MEDS: MetroNIDAZOLE 250 MG TABLET PO SCH ×3 (00:12→16:01)
[2017-03-18 04:00] VITALS: BP 112/63
[2017-03-18] MEDS: ALBUMIN HUMAN 25%-12.5GM/50ML 50 ML IV SCH ×4 (05:13→23:20)
[2017-03-18] MEDS: PROPOFOL 1000 MG/ISO-OSM 100 ML IV PRN (05:16)
[2017-03-18 06:05] LABS: BASOPHILS % (AUTO) 0.1 % (0.0-2.0); EOSINOPHILS % (AUTO) 0.9 % (1.0-6.0); HEMOGLOBIN 7.1 g/dL (13.5-17.5); LYMPHOCYTES # (AUTO) 0.8 K/uL (1.0-4.8); LYMPHOCYTES % (AUTO) 8.4 % (22.0-44.0); MEAN CORPUSCULAR HGB CONC 30.8 G/dL (31.0-37.0); MEAN CORPUSCULAR VOLUME 104 fL (80-100); MONOCYTES # (AUTO) 0.8 K/uL (0.1-1.0); NEUTROPHILS # (AUTO) 8.3 K/uL (1.8-7.7); NEUTROPHILS % (AUTO) 82.6 % (40.0-70.0); PLATELET COUNT (AUTO) 315 K/uL (150-450); RED BLOOD CELL COUNT(AUTO) 2.22 MIL/uL (4.50-5.90); RED CELL DISTRIBUTION WIDTH 17.5 % (11.5-14.5)
[2017-03-18 06:55] LABS: ANION GAP 7 mmol/L (8-16); CALCIUM, TOTAL 8.5 mg/dL (8.8-10.5); CARBON DIOXIDE 27 mmol/L (22-29); CHLORIDE 106 mmol/L (98-107); CREATININE 0.68 mg/dL (0.60-1.30); GLOMERULAR FILTR. RATE CALC > 60 mL/min (>60); POTASSIUM 3.2 mmol/L (3.5-5.1); SODIUM SERUM 140 mmol/L (136-145); UREA NITROGEN, BLOOD 14 mg/dL (7-18)
[2017-03-18 08:00] VITALS: BP 122/73
[2017-03-18] MEDS: BUDESONIDE 0.5 MG/2 ML NEB SOLUTION NEB SCH ×2 (08:08→20:11)
[2017-03-18] MEDS: THIAMINE HCL 100 MG TABLET PO SCH (08:19)
[2017-03-18] MEDS: CARVEDILOL 6.25 MG TABLET PO SCH ×2 (08:19→21:29)
[2017-03-18] MEDS: FUROSEMIDE 40 MG TABLET PO SCH (08:19)
[2017-03-18] MEDS: RANITIDINE HCL 150 MG TABLET PO SCH ×2 (08:20→21:29)
[2017-03-18] MEDS: AMIODARONE HCL 200 MG TABLET PO SCH ×2 (08:20→21:29)
[2017-03-18] MEDS: FOLIC ACID 1 MG TABLET PO SCH (08:20)
[2017-03-18] MEDS: MULTIVITAMINS WITH MINERALS, THERAPEUTIC TABLET PO SCH (08:20)
[2017-03-18 09:34] LABS: RBC MORPHOLOGY COMMENT ABNORMAL RBC MORPH
[2017-03-18] MEDS: NICOTINE 7 MG/24 HOUR PATCH TD SCH (10:34)
[2017-03-18] MEDS: POTASSIUM CHL 10 MEQ/WATER 50 ML IV PRN ×3 (10:35→12:42)
[2017-03-18 12:00] VITALS: BP 120/72
[2017-03-18 16:00] VITALS: BP 143/86
[2017-03-18 20:00] VITALS: BP 148/86
[2017-03-18] MEDS ORDERED: 0.9% SODIUM CHLORIDE 10 ML SYRINGE IVP PRN (20:00)
[2017-03-18] MEDS ORDERED: 0.9% SODIUM CHLORIDE 5 ML NEB SOLUTION NEB ONE (20:02)
[2017-03-18] MEDS ORDERED: BENZOCAINE/MENTHOL LOZENGE [8 LOZENGES/PACKET] PO PRN (22:45)
[2017-03-19] VITALS: BP 145/79
[2017-03-19] MEDS: NAFCILLIN SODIUM 2 GM in DEXTROSE 5%-WATER 100 ML IV SCH ×7 (00:13→23:42)
[2017-03-19] MEDS: MetroNIDAZOLE 250 MG TABLET PO SCH ×4 (00:51→23:42)
[2017-03-19 04:00] VITALS: BP 140/80
[2017-03-19] MEDS: ALBUMIN HUMAN 25%-12.5GM/50ML 50 ML IV SCH ×4 (04:44→23:17)
[2017-03-19 08:00] VITALS: BP 135/84
[2017-03-19] MEDS: BUDESONIDE 0.5 MG/2 ML NEB SOLUTION NEB SCH ×2 (08:01→20:20)
[2017-03-19 08:16] LABS: ABG A-A DIFF O2 119.8 mmHg (10-20.0); ABG BASE EXCESS 0.9 mmol/L (-2.0-3.0); ABG HCO3 25.4 mmol/L (22.0-26.0); ABG OXYHEMOGLOBIN 96.2 % (94.0-100.0); ABG PCO2 35 mmHg (35-45); ABG PH 7.471 (7.35-7.450); TEMPERATURE, FAHRENHEIT, BG 98.1 FAHREN (96.0-98.6)
[2017-03-19 08:23] LABS: ALLEN TEST, BLOOD GAS Positive
[2017-03-19] MEDS: CARVEDILOL 6.25 MG TABLET PO SCH ×2 (09:00→20:02)
[2017-03-19] MEDS: FOLIC ACID 1 MG TABLET PO SCH (10:45)
[2017-03-19] MEDS: FUROSEMIDE 40 MG TABLET PO SCH (10:45)
[2017-03-19] MEDS: THIAMINE HCL 100 MG TABLET PO SCH (10:45)
[2017-03-19] MEDS: RANITIDINE HCL 150 MG TABLET PO SCH ×2 (10:45→20:02)
[2017-03-19] MEDS: MULTIVITAMINS WITH MINERALS, THERAPEUTIC TABLET PO SCH (10:45)
[2017-03-19] MEDS: AMIODARONE HCL 200 MG TABLET PO SCH ×2 (10:45→20:02)
[2017-03-19 12:03] VITALS: BP 142/77
[2017-03-19] MEDS ORDERED: SODIUM CHLORIDE 0.9% 100 ML ONE (14:42)
[2017-03-19] MEDS: NICOTINE 7 MG/24 HOUR PATCH TD SCH (14:52)
[2017-03-19 15:24] VITALS: BP 142/79
[2017-03-19 19:46] VITALS: BP 147/91
[2017-03-19] MEDS ORDERED: 0.9% SODIUM CHLORIDE 5 ML NEB SOLUTION NEB ONE (20:19)
[2017-03-20] VITALS (9 sets, daily range): BP systolic 126–155; BP diastolic 71–89
[2017-03-20] MEDS ORDERED: SODIUM CHLORIDE 0.45% 1,000 ML IV SCH
[2017-03-20] MEDS: NAFCILLIN SODIUM 2 GM in DEXTROSE 5%-WATER 100 ML IV SCH ×6 (03:39→23:28)
[2017-03-20] MEDS: ALBUMIN HUMAN 25%-12.5GM/50ML 50 ML IV SCH ×4 (04:36→23:28)
[2017-03-20] MEDS: MetroNIDAZOLE 250 MG TABLET PO SCH ×3 (08:00→23:27)
[2017-03-20] MEDS ORDERED: 0.9% SODIUM CHLORIDE 5 ML NEB SOLUTION NEB ONE (08:35)
[2017-03-20] MEDS ORDERED: MIDAZOLAM HCL 2 MG/2 ML VIAL ONE (09:00)
[2017-03-20] MEDS: AMIODARONE HCL 200 MG TABLET PO SCH ×2 (09:00→20:36)
[2017-03-20] MEDS: RANITIDINE HCL 150 MG TABLET PO SCH ×2 (09:00→20:36)
[2017-03-20] MEDS: CARVEDILOL 6.25 MG TABLET PO SCH ×2 (09:00→20:36)
[2017-03-20] MEDS: NICOTINE 7 MG/24 HOUR PATCH TD SCH (09:00)
[2017-03-20] MEDS ORDERED: FentaNYL CITRATE-PF 100 MCG/2 ML VIAL ONE (09:00)
[2017-03-20] MEDS: BUDESONIDE 0.5 MG/2 ML NEB SOLUTION NEB SCH ×2 (09:00→21:39)
[2017-03-20] MEDS ORDERED: BENZOCAINE 20% 50 MCG/SPRAY 57 GM ONE (09:01)
[2017-03-20] MEDS ORDERED: SODIUM CHLORIDE 0.9% 500 ML IV ONE (09:02)
[2017-03-20] MEDS ORDERED: BENZOCAINE 20% 30 ML SOLUTION TP ONE (09:05)
[2017-03-20] MEDS ORDERED: BENZOCAINE 20% 50 MCG/SPRAY 57 GM TP ONE (10:30)
[2017-03-20] MEDS: FOLIC ACID 1 MG TABLET PO SCH (13:32)
[2017-03-20] MEDS: FUROSEMIDE 40 MG TABLET PO SCH (13:32)
[2017-03-20] MEDS: MULTIVITAMINS WITH MINERALS, THERAPEUTIC TABLET PO SCH (13:33)
[2017-03-20] MEDS: THIAMINE HCL 100 MG TABLET PO SCH (13:43)
[2017-03-20] MEDS: LACTOBACILLUS ACIDOPHILUS/BULGARICUS TABLET PO SCH (20:36)
[2017-03-20] MEDS: ALBUTEROL SULFATE 2.5 MG/0.5 ML NEB SOLUTION NEB PRN (21:39)
[2017-03-20] MEDS: IPRATROPIUM BROMIDE 0.5 MG/2.5 ML NEB SOLUTION NEB PRN (21:39)
[2017-03-21] MEDS: NAFCILLIN SODIUM 2 GM in DEXTROSE 5%-WATER 100 ML IV SCH ×5 (04:39→20:03)
[2017-03-21 04:45] VITALS: BP 128/73
[2017-03-21] MEDS: ALBUMIN HUMAN 25%-12.5GM/50ML 50 ML IV SCH ×3 (05:59→18:16)
[2017-03-21 06:24] LABS: BASOPHILS % (AUTO) 0.1 % (0.0-2.0); EOSINOPHILS % (AUTO) 0.6 % (1.0-6.0); HEMATOCRIT 26.6 % (41-53); HEMOGLOBIN 8.4 g/dL (13.5-17.5); LYMPHOCYTES % (AUTO) 8.7 % (22.0-44.0); MEAN CORPUSCULAR HEMOGLOBIN 32.6 pg (26.0-34.0); MEAN CORPUSCULAR HGB CONC 31.5 G/dL (31.0-37.0); MEAN CORPUSCULAR VOLUME 104 fL (80-100); MONOCYTES # (AUTO) 0.8 K/uL (0.1-1.0); NEUTROPHILS # (AUTO) 9.2 K/uL (1.8-7.7); NEUTROPHILS % (AUTO) 83.6 % (40.0-70.0); PLATELET COUNT (AUTO) 375 K/uL (150-450); RED BLOOD CELL COUNT(AUTO) 2.57 MIL/uL (4.50-5.90); RED CELL DISTRIBUTION WIDTH 17.7 % (11.5-14.5)
[2017-03-21 07:23] VITALS: BP 141/77
[2017-03-21] MEDS: MetroNIDAZOLE 250 MG TABLET PO SCH ×2 (08:44→16:43)
[2017-03-21] MEDS: MULTIVITAMINS WITH MINERALS, THERAPEUTIC TABLET PO SCH (08:44)
[2017-03-21] MEDS: RANITIDINE HCL 150 MG TABLET PO SCH ×2 (08:44→20:04)
[2017-03-21] MEDS: THIAMINE HCL 100 MG TABLET PO SCH (08:44)
[2017-03-21] MEDS: FOLIC ACID 1 MG TABLET PO SCH (08:45)
[2017-03-21] MEDS: AMIODARONE HCL 200 MG TABLET PO SCH ×2 (08:45→20:04)
[2017-03-21] MEDS: FUROSEMIDE 40 MG TABLET PO SCH (08:45)
[2017-03-21] MEDS: CARVEDILOL 6.25 MG TABLET PO SCH ×2 (08:45→20:04)
[2017-03-21] MEDS: LACTOBACILLUS ACIDOPHILUS/BULGARICUS TABLET PO SCH ×3 (08:45→20:04)
[2017-03-21] MEDS: NICOTINE 7 MG/24 HOUR PATCH TD SCH (09:00)
[2017-03-21] MEDS: BUDESONIDE 0.5 MG/2 ML NEB SOLUTION NEB SCH ×2 (10:18→22:51)
[2017-03-21 11:29] VITALS: BP 136/77
[2017-03-21 12:45] LABS: RBC MORPHOLOGY COMMENT ABNORMAL RBC MORPH
[2017-03-21] MEDS: ACETAMINOPHEN 325 MG TABLET PO PRN (13:01)
[2017-03-21 15:19] VITALS: BP 121/65
[2017-03-21] MEDS: IPRATROPIUM BROMIDE 0.5 MG/2.5 ML NEB SOLUTION NEB PRN (15:29)
[2017-03-21] MEDS: ALBUTEROL SULFATE 2.5 MG/0.5 ML NEB SOLUTION NEB PRN (15:29)
[2017-03-21] MEDS: TraMADol HCL 50 MG TABLET PO PRN (18:16)
[2017-03-21 19:19] VITALS: BP 145/82
[2017-03-21] MEDS ORDERED: 0.9% SODIUM CHLORIDE 5 ML NEB SOLUTION NEB ONE (19:59)
[2017-03-21 23:27] VITALS: BP 134/76
[2017-03-22] MEDS: MetroNIDAZOLE 250 MG TABLET PO SCH ×3 (00:27→16:17)
[2017-03-22] MEDS: NAFCILLIN SODIUM 2 GM in DEXTROSE 5%-WATER 100 ML IV SCH ×6 (00:28→19:44)
[2017-03-22] MEDS: ALBUMIN HUMAN 25%-12.5GM/50ML 50 ML IV SCH ×5 (00:29→23:21)
[2017-03-22 04:55] VITALS: BP 150/77
[2017-03-22 07:26] VITALS: BP 130/81
[2017-03-22] MEDS: NICOTINE 7 MG/24 HOUR PATCH TD SCH (09:00)
[2017-03-22] MEDS: TraMADol HCL 50 MG TABLET PO PRN ×2 (09:08→19:53)
[2017-03-22] MEDS: LACTOBACILLUS ACIDOPHILUS/BULGARICUS TABLET PO SCH ×3 (09:08→20:54)
[2017-03-22] MEDS: FOLIC ACID 1 MG TABLET PO SCH (09:08)
[2017-03-22] MEDS: RANITIDINE HCL 150 MG TABLET PO SCH ×2 (09:08→20:54)
[2017-03-22] MEDS: FUROSEMIDE 40 MG TABLET PO SCH (09:09)
[2017-03-22] MEDS: THIAMINE HCL 100 MG TABLET PO SCH (09:09)
[2017-03-22] MEDS: MULTIVITAMINS WITH MINERALS, THERAPEUTIC TABLET PO SCH (09:09)
[2017-03-22] MEDS: CARVEDILOL 6.25 MG TABLET PO SCH ×2 (09:09→20:54)
[2017-03-22] MEDS: AMIODARONE HCL 200 MG TABLET PO SCH ×2 (09:09→20:54)
[2017-03-22] MEDS: BUDESONIDE 0.5 MG/2 ML NEB SOLUTION NEB SCH ×2 (10:04→20:06)
[2017-03-22 11:30] VITALS: BP 144/82
[2017-03-22 15:46] VITALS: BP 142/83
[2017-03-22 19:26] VITALS: BP 146/89
[2017-03-22] MEDS ORDERED: 0.9% SODIUM CHLORIDE 5 ML NEB SOLUTION NEB ONE (19:55)
[2017-03-22 23:19] VITALS: BP 142/82
[2017-03-23] MEDS: MetroNIDAZOLE 250 MG TABLET PO SCH ×3 (00:30→17:34)
[2017-03-23] MEDS: NAFCILLIN SODIUM 2 GM in DEXTROSE 5%-WATER 100 ML IV SCH ×6 (00:35→20:46)
[2017-03-23 04:22] VITALS: BP 145/86
[2017-03-23] MEDS: ALBUMIN HUMAN 25%-12.5GM/50ML 50 ML IV SCH ×3 (05:42→17:34)
[2017-03-23 07:52] VITALS: BP 148/82
[2017-03-23] MEDS ORDERED: SODIUM CHLORIDE 0.9% 250 ML IV ONE (09:29)
[2017-03-23] MEDS: MULTIVITAMINS WITH MINERALS, THERAPEUTIC TABLET PO SCH (09:36)
[2017-03-23] MEDS: LACTOBACILLUS ACIDOPHILUS/BULGARICUS TABLET PO SCH ×3 (09:36→20:46)
[2017-03-23] MEDS: THIAMINE HCL 100 MG TABLET PO SCH (09:36)
[2017-03-23] MEDS: FUROSEMIDE 40 MG TABLET PO SCH (09:36)
[2017-03-23] MEDS: AMIODARONE HCL 200 MG TABLET PO SCH ×2 (09:36→20:46)
[2017-03-23] MEDS: FOLIC ACID 1 MG TABLET PO SCH (09:36)
[2017-03-23] MEDS: CARVEDILOL 6.25 MG TABLET PO SCH ×2 (09:36→21:46)
[2017-03-23] MEDS: NICOTINE 7 MG/24 HOUR PATCH TD SCH (09:37)
[2017-03-23] MEDS: RANITIDINE HCL 150 MG TABLET PO SCH ×2 (09:37→20:46)
[2017-03-23] MEDS: TraMADol HCL 50 MG TABLET PO PRN ×2 (11:07→20:46)
[2017-03-23] MEDS ORDERED: 0.9% SODIUM CHLORIDE 5 ML NEB SOLUTION NEB ONE (11:10)
[2017-03-23] MEDS: ALBUTEROL SULFATE 2.5 MG/0.5 ML NEB SOLUTION NEB PRN (11:14)
[2017-03-23] MEDS: BUDESONIDE 0.5 MG/2 ML NEB SOLUTION NEB SCH (11:18)
[2017-03-23 11:31] VITALS: BP 152/92
[2017-03-23 15:28] VITALS: BP 146/82
[2017-03-23] MEDS ORDERED: FURO40 PO (16:15)
[2017-03-23] MEDS ORDERED: [UNRECOGNIZED DRUG - CODE] INJ (16:19)
[2017-03-23] MEDS ORDERED: BUDE0.5A3 NEB (16:19)
[2017-03-23] MEDS ORDERED: FOLI1 PO (16:20)
[2017-03-23] MEDS ORDERED: CARV6 PO (16:20)
[2017-03-23] MEDS ORDERED: LACT1TAB11 PO (16:32)
[2017-03-23] MEDS ORDERED: MULT-248 PO (16:33)
[2017-03-23] MEDS ORDERED: METR250 PO (16:34)
[2017-03-23] MEDS ORDERED: NAFC2VIA IVPB (16:37)
[2017-03-23] MEDS ORDERED: NICO7T TD (16:38)
[2017-03-23] MEDS ORDERED: RANI150T7 PO (16:38)
[2017-03-23] MEDS ORDERED: THIA100 PO (16:38)
[2017-03-23] MEDS ORDERED: ACET-2247 PO (16:39)
[2017-03-23] MEDS ORDERED: AUD NEB (16:44)
[2017-03-23] MEDS ORDERED: BENZ1LOZ68 PO (16:46)
[2017-03-23] MEDS ORDERED: BISA10S PR (16:47)
[2017-03-23] MEDS ORDERED: IPRNEB IH (16:48)
[2017-03-23] MEDS ORDERED: LORA2TAB2 PO (16:50)
[2017-03-23] MEDS ORDERED: MOM30 PO (16:52)
[2017-03-23] MEDS ORDERED: ONDA4AMP IV (16:54)
[2017-03-23] MEDS ORDERED: TRAM50TA4 PO (16:55)
[2017-03-23] MEDS ORDERED: LORA-192 IM (16:56)
[2017-03-23 19:22] VITALS: BP 139/85
[2017-03-23 23:44] VITALS: BP 151/86
== END 2017-03-23 23:55 | disposition short-term general hospital (02) | DRG 720 ==
LOC: EMS 12:09 → 5S 22:31 → 5N 03-01 00:55 → 5S 03-01 05:47 → ICU 03-10 02:00 → 5N 03-19 11:40 → UNDODISIN 03-23 19:35
PROVIDERS: ADMIT Internal Medicine; ATTEND Internal Medicine
PROC: 0BH18EZ Insertion of Endotracheal Airway into Trachea, Via Natural or Artificial Opening Endoscopic (ICD-10-PCS; principal; 2017-03-10)
PROC: 5A1955Z Respiratory Ventilation, Greater than 96 Consecutive Hours (ICD-10-PCS; 2017-03-10)
PROC: 02HV33Z Insertion of Infusion Device into Superior Vena Cava, Percutaneous Approach (ICD-10-PCS; 2017-03-14)
PROC: B548ZZA Ultrasonography of Superior Vena Cava, Guidance (ICD-10-PCS; 2017-03-14)
PROC: B246ZZ4 Ultrasonography of Right and Left Heart, Transesophageal (ICD-10-PCS; 2017-03-20)
DX: A41.9 Sepsis, unspecified organism (principal); J96.01 Acute respiratory failure with hypoxia; J69.0 Pneumonitis due to inhalation of food and vomit; R65.21 Severe sepsis with septic shock; G93.40 Encephalopathy, unspecified; I50.23 Acute on chronic systolic (congestive) heart failure; E43 Unspecified severe protein-calorie malnutrition; E87.2 Acidosis; A04.7 Enterocolitis due to Clostridium difficile; I42.9 Cardiomyopathy, unspecified; E83.51 Hypocalcemia; I48.0 Paroxysmal atrial fibrillation; I11.0 Hypertensive heart disease with heart failure; F10.239 Alcohol dependence with withdrawal, unspecified; D53.9 Nutritional anemia, unspecified; K21.9 Gastro-esophageal reflux disease without esophagitis; M19.90 Unspecified osteoarthritis, unspecified site; F41.9 Anxiety disorder, unspecified; F11.90 Opioid use, unspecified, uncomplicated; J44.1 Chronic obstructive pulmonary disease with (acute) exacerbation; Z95.810 Presence of automatic (implantable) cardiac defibrillator; F17.200 Nicotine dependence, unspecified, uncomplicated; R74.0 Nonspecific elevation of levels of transaminase and lactic acid dehydrogenase [LDH]; I27.2 Other secondary pulmonary hypertension; G89.4 Chronic pain syndrome; E87.6 Hypokalemia; J15.211 Pneumonia due to Methicillin susceptible Staphylococcus aureus; G89.29 Other chronic pain; M54.9 Dorsalgia, unspecified; J44.0 Chronic obstructive pulmonary disease with (acute) lower respiratory infection; N39.0 Urinary tract infection, site not specified; T82.7XXA Infection and inflammatory reaction due to other cardiac and vascular devices, implants and grafts, initial encounter; Y83.1 Surgical operation with implant of artificial internal device as the cause of abnormal reaction of the patient, or of later complication, without mention of misadventure at the time of the procedure; M54.5 Low back pain; Y93.89 Activity, other specified; Z79.891 Long term (current) use of opiate analgesic; Z98.1 Arthrodesis status; Z90.89 Acquired absence of other organs; Z79.899 Other long term (current) drug therapy; Y92.89 Other specified places as the place of occurrence of the external cause; Y99.8 Other external cause status
CPT/HCPCS: 36245; 36569; 70450; 71020; 71250; 76937; 78806; 80074; 82306; 82805; 82962; 83735; 84100; 84132; 84145; 84443; 87040; 87070; 87081; 87086; 87205; 87324; 87449; 89055; 92610; 92950; 93005; 93306; 93312; 94002; 94003; 94640; 94799; 96365; 96366; 96367; 97162; 97167; 97530; 97535; 99285; A9547; G0480; J0295; J0696; J1160; J1644; J1940; J2060; J2250; J2370; J2704; J3010; J3370; J3411; J3475; J3480; J3490; J7030; J7040; J7050; J7060; P9047